=== PATIENT | female | born 1930 | race Caucasian/White ===

== ENCOUNTER 2018-07-03 13:36 | Inpatient (IN) | payer OTHER, BC ==
[2018-07-03] MEDS ORDERED: SODIUM CHLORIDE 1,000 ML IV STA ×3 (13:47→20:44)
[2018-07-03] MEDS ORDERED: VANCOMYCIN 1 GM in D5W (PRE-DOCKED) 1,000 MG/250 ML IVPB ONE (13:53)
[2018-07-03] MEDS ORDERED: PIPERACILLIN/TAZOB 3.375 GM 3.375 GM in DEXTROSE 5%-WATER - 50 ML IVPB ONE (13:53)
[2018-07-03] MEDS ORDERED: ACETAMINOPHEN 1000 MG/100 ML VIAL (NON FORMULARY) IVPB ONE (13:59)
--- NOTE | 2018-07-03 14:06 | PDOC ---
History of Present Illness - General Stated Complaint: SEPSIS Time Seen by Provider: 07/03/18 13:47 History Source: EMS, Detention Records Exam Limitations: Clinical Condition - History of Present Illness Initial Comments: 07/03/18 14:06 Patient is 88F from [facility] with history of alzheimer's, anxiety/depression, falls, CAD, DNR here today with altered mental status. Patient was sent in by her correction to "r/o sepsis". Temp was 97.6. Baseline patient is alert and oriented x2. At this time, patient is awake but non-responsive and unable to contribute to history. EMS reports normal fingerstick and vitals stable in the field. 07/03/18 14:36 D/W Zeynep Holland, patient's daughter, at [phone]. Confirms DNR/DNI. Past History - Past Medical History Allergies/Adverse Reactions: Allergies Allergy/AdvReac Type Severity Reaction Status Date / Time No Known Allergies Allergy Verified 07/05/15 14:29 Home Medications: Ambulatory Orders Acetaminophen [Tylenol] 650 mg PO TID 07/05/15 Ascorbic Acid [Vitamin C] 500 mg PO DAILY 07/05/15 Aspirin [ASA -] 81 mg PO DAILY 07/05/15 Divalproex [Depakote -] 125 mg PO BID 07/05/15 Docusate Sodium 100 mg PO DAILY 07/05/15 Donepezil HCl [Aricept -] 10 mg PO DAILY 07/05/15 Memantine HCl [Namenda -] 10 mg PO BID 07/05/15 Mirtazapine [Remeron Soltab -] 15 mg PO DAILY 07/05/15 Multivitamin [Poly-Vitamin] 1 each PO DAILY 07/05/15 Quetiapine Fumarate [Seroquel -] 50 mg PO DAILY 07/05/15 Acetaminophen [Tylenol .Regular Strength -] 650 mg PO TID tablet 07/06/15 Ascorbic Acid [Vitamin C -] 500 mg PO DAILY tablet 07/06/15 Aspirin [ASA -] 81 mg PO DAILY tab.chew 07/06/15 Docusate Sodium [Colace -] 100 mg PO DAILY capsule 07/06/15 Memantine HCl [Namenda -] 10 mg PO BID tablet 07/06/15 Multivitamins [Multivit ([facility] Formulary)] 1 tab PO DAILY tab 07/06/15 Anemia: No Asthma: No Dementia: Yes (alzheimers, dementia without behavioral disturbances) Psychiatric Problems: Yes (depressive behavior.) - Immunization History Immunization Up to Date: Yes - Suicide/Smoking/Psychosocial Hx Smoking History: Never smoked Have you smoked in the past 12 months: No Hx Alcohol Use: No Drug/Substance Use Hx: No Substance Use Type: None Hx Substance Use Treatment: No Review of Systems - Review of Systems Able to Perform ROS?: No (2/2 clinical condition) *Physical Exam - Physical Exam Comments: 07/03/18 14:12 GENERAL: Awake, ill-appearing, warm to touch HEAD: No signs of trauma, normocephalic, atraumatic EYES: PERRLA, EOMI, sclera anicteric, conjunctiva clear ENT: Auricles normal inspection, hearing grossly normal, nares patent, oropharynx clear without exudates. Moist mucosa NECK: Normal ROM, supple, no lymphadenopathy, JVD, or masses LUNGS: Tachypneic, coarse breath sounds bilaterally HEART: Tachycardic, normal S1 and S2, no murmurs, rubs or gallops, peripheral pulses normal and equal bilaterally. ABDOMEN: Soft, nontender, normoactive bowel sounds. No guarding, no rebound. No masses EXTREMITIES: Posterior distal legs wrapped. NEUROLOGICAL: Cranial nerves II through XII grossly intact. Moving all extremities SKIN: Warm, Dry, normal turgor, no rashes or lesions noted. ED Treatment Course - LABORATORY CBC & Chemistry Diagram: 07/03/18 14:12 07/03/18 14:12 - RADIOLOGY Radiology Studies Ordered: Category Date Time Status CHEST X-RAY PORTABLE* [RAD] Stat Radiology 07/03/18 13:47 Ordered Medical Decision Making - Medical Decision Making 07/03/18 14:13 Patient is 88F with history of alzheimer's, anxiety, depression, CAD, DNR here today with sepsis. Vitals notable for fever, tachycardia. DDx for infectious source and includes, but is not limited to: UTI, pneumonia. Septic order set initiated. Will treat with 1L NS, vanc, zosygn, iv tylenol EKG shows sinus tachycardia with rate of 127. No st elevations. Diffuse ST depressions in in I, II, aVF, V2-V6. Normal intervals. Likely 2/2 demand ischemia. 07/03/18 15:17 Laboratory Tests 07/03/18 07/03/18 07/03/18 14:12 14:12 14:12 WBC 16.2 H Hgb 8.1 L Plt Count 411 D VBG pH 7.37 POC VBG pCO2 32.6 L Sodium 152 H BUN 76 H Creatinine 2.1 H Lactic Acid Total Bilirubin 0.4 AST 95 H ALT 83 H Troponin I 0.20 H 07/03/18 14:12 WBC Hgb Plt Count VBG pH POC VBG pCO2 Sodium BUN Creatinine Lactic Acid 6.6 H* Total Bilirubin AST ALT Troponin I CBC shows leukocytosis. VBG shows normal pH. CMP shows evidence of dehydration. Trop 0.20, consistent with demand ischemia. Lactic acid 6.6. Second liter ordered. Patient has severe sepsis. CXR clear, but given initial coarse breath sounds suspect hydration will show pneumonia. Case d/w Dr Webb. Given coarse lung sounds suspect respiratory source, CXR clear due to dehydration. Dr Felipa Hernández paged. 07/03/18 15:39 Dr Felipa Hernández requests hospitalist, last HR 106, BP 159/82. Case discussed with NATALIA Liu *DC/Admit/Observation/Transfer Diagnosis at time of Disposition: Severe sepsis, Altered mental status - Discharge Dispostion Condition at time of disposition: Stable Decision to Admit order: Yes - Referrals - Patient Instructions - Post Discharge Activity
[2018-07-03] MEDS ORDERED: ACETAMINOPHEN INJECTION 100 ML IVPB ONE (14:08)
[2018-07-03] MEDS ORDERED: VANCOMYCIN 1 GRAM (PRE-DOCKED) 1,000 MG/250 ML BAG IVPB ONE (14:09)
[2018-07-03] MEDS ORDERED: PIPERACILLIN/TAZOB 3.375 GM 3.375 GM/50 ML BAG IVPB ONE (14:09)
[2018-07-03 14:22] LABS: VENOUS PC02 32.6 mmHg (41-51); VENOUS PH 7.37 (7.31-7.41); VENOUS PO2 63.4 mmHg (30-40)
[2018-07-03 14:24] LABS: BASO % 0.4 % (0-2.0); HEMATOCRIT 24.1 % (32.4-45.2); HEMOGLOBIN 8.1 GM/dL (10.7-15.3); LYMPH % 7.4 % (8-40); MCH 33.4 pg (25.7-33.7); MCHC 33.4 g/dl (32.0-36.0); MEAN CELL VOLUME 100.2 fl (80-96); MEAN PLT VOLUME 8.8 fl (7.5-11.1); MONO % 6.2 % (3.8-10.2); PLATELET COUNT 411 K/MM3 (134-434); RBC 2.41 M/mm3 (3.60-5.2); RDW 13.4 % (11.6-15.6); WHITE BLOOD COUNT 16.2 K/mm3 (4.0-10.0)
--- NOTE | 2018-07-03 14:30 | PDOC ---
Attending Attestation - HPI HPI: 07/03/18 14:36 The patient is an 88 YOF with a PMH of dementia and depression sent from [facility] for evaluation of lethargy. Patient is unable to provide further history 2/2 clinical condition. She is febrile to 102 here in the ER. She is DNR /DNI. Allergies: NKDA Surgeries: None Social: No toxic habits. - Physicial Exam PE: 07/03/18 14:35 ADULT EXAM GENERAL: (+) A&O x0. (+) Warm to touch. (+) Lethargic but responds to painful stimuli. HEAD: No signs of trauma EYES: PERRLA, EOMI, sclera anicteric, conjunctiva clear ENT: Auricles normal inspection, nares patent, (+) dry mucous membranes . NECK: Normal ROM, supple, JVD, or masses LUNGS: Breath sounds equal, clear to auscultation bilaterally. No wheezes, and no crackles HEART: Regular rate and rhythm, normal S1 and S2, no murmurs, rubs or gallops ABDOMEN: Soft, nontender. No guarding, no rebound. No masses EXTREMITIES: (+) Chronic bilateral feet wounds that are healing. NEUROLOGICAL: (+) A&O x0. SKIN: Dry, normal turgor, no rashes or lesions noted. (+) Warm to touch. <Nelia Burgess - Last Filed: 07/03/18 14:35> - Resident Resident Name: Rodrigue Bello - ED Attending Attestation I have performed the following: I have examined & evaluated the patient, The case was reviewed & discussed with the resident, I agree w/resident's findings & plan, Exceptions are as noted - Medical Decision Making 07/03/18 14:28 A portion of this note was documented by scribe services under my direction. I have reviewed the details of the note, within reason, and agree with the documentation with the following case summary and management plan written by me. Patient treated in the ED. Nursing notes are reviewed and incorporated into the medical decision-making. Vital signs reviewed. Peripheral IV access obtained by the nurse, laboratory studies are drawn and sent, reviewed and interpreted by myself. Vital Signs Temp Pulse Resp BP Pulse Ox 102.3 F H 127 H 26 H 122/69 97 07/03/18 13:40 07/03/18 13:40 07/03/18 13:40 07/03/18 13:40 07/03/18 13:40 88-year-old female with past medical history of dementia, depression sent from [facility] sent in for lethargy. The patient is unable to provide a history secondary to her illness and dementia. Patient has a temperature of 102 here. We'll need to initiate sepsis protocol. Dr. Bello had contacted pt's family and they will come to hospital. Start empiric antibiotics and admit. 07/03/18 15:51 CBC, BMP 07/03/18 14:12 07/03/18 14:12 CMP Sodium 152 mmol/L (136-145) H 07/03/18 14:12 Potassium 4.5 mmol/L (3.5-5.1) 07/03/18 14:12 Chloride 119 mmol/L (98-107) H 07/03/18 14:12 Carbon Dioxide 18 mmol/L (21-32) L 07/03/18 14:12 Anion Gap 14 MMOL/L (8-16) 07/03/18 14:12 BUN 76 mg/dL (7-18) H 07/03/18 14:12 Creatinine 2.1 mg/dL (0.55-1.3) H 07/03/18 14:12 Creat Clearance w eGFR 22.33 (>60) 07/03/18 14:12 Random Glucose 191 mg/dL (74-106) H 07/03/18 14:12 Lactic Acid 6.6 mmol/L (0.4-2.0) H* 07/03/18 14:12 Calcium 8.3 mg/dL (8.5-10.1) L 07/03/18 14:12 Total Bilirubin 0.4 mg/dL (0.2-1) 07/03/18 14:12 AST 95 U/L (15-37) H 07/03/18 14:12 ALT 83 U/L (13-61) H 07/03/18 14:12 Alkaline Phosphatase 86 U/L (45-117) 07/03/18 14:12 Troponin I 0.20 ng/ml (0.00-0.05) H 07/03/18 14:12 Total Protein 6.5 g/dl (6.4-8.2) 07/03/18 14:12 Albumin 3.2 g/dl (3.4-5.0) L 07/03/18 14:12 Urine Test Results Urine Color Yellow 07/03/18 14:00 Urine Appearance Clear 07/03/18 14:00 Urine pH 5.0 (5.0-8.0) 07/03/18 14:00 Ur Specific [place] 1.026 (1.010-1.035) 07/03/18 14:00 Urine Protein Negative (NEGATIVE) 07/03/18 14:00 Urine Glucose (UA) Negative (NEGATIVE) 07/03/18 14:00 Urine Ketones Trace (NEGATIVE) H 07/03/18 14:00 Urine Blood Negative (NEGATIVE) 07/03/18 14:00 Urine Nitrite Negative (NEGATIVE) 07/03/18 14:00 Urine Bilirubin Negative (<2.0 mg/dL) 07/03/18 14:00 Ur Leukocyte Esterase Trace (NEGATIVE) 07/03/18 14:00 Chest xray reviewed. Findings demonstrate likely severe sepsis. Pt mental status improving with IVF and antibiotics. Dr. Webb consulted and he had seen patient. Will admit patient to hospital. <Danny Reynolds - Last Filed: 07/03/18 15:53> Heart Score/ECG Review #1 ECG reviewed & interpreted by me at: 13:50 07/03/18 14:46 NSR 127 with PACs, marked ST abnormality, STD I, II, V3-V6, no SAMSON, QTC 430 msec <Danny Reynolds - Last Filed: 07/03/18 15:53>
[2018-07-03 14:34] LABS: EPI CELLS 3.3 /HPF (0-5); URINE APPEARANCE CLEAR; URINE BACTERIA 6.084 /hpf (NEGATIVE); URINE BILIRUBIN NEGATIVE (<2.0 mg/dL); URINE COLOR YELLOW; URINE GLUCOSE (UA) NEGATIVE (NEGATIVE); URINE KETONE TRACE (NEGATIVE); URINE LEUK ESTERASE TRACE (NEGATIVE); URINE NITRITE NEGATIVE (NEGATIVE); URINE PROTEIN NEGATIVE (NEGATIVE); URINE RBC 0 /hpf (0-4); URINE UROBILINOGEN 0.2 mg/dL (0.2-1.0); URINE WBC 2 /hpf (0-5)
[2018-07-03 15:05] LABS: ALBUMIN 3.2 g/dl (3.4-5.0); ALK PHOS 86 U/L (45-117); ANION GAP 14 MMOL/L (8-16); BILIRUBIN,TOTAL 0.4 mg/dL (0.2-1); BLOOD UREA NITROGEN 76 mg/dL (7-18); CALCIUM 8.3 mg/dL (8.5-10.1); CHLORIDE 119 mmol/L (98-107); CO2 18 mmol/L (21-32); CREATININE 2.1 mg/dL (0.55-1.3); GLUCOSE,RANDOM 191 mg/dL (74-106); POTASSIUM 4.5 mmol/L (3.5-5.1); SGOT/AST 95 U/L (15-37); SGPT/ALT 83 U/L (13-61); SODIUM 152 mmol/L (136-145); TOT PROT 6.5 g/dl (6.4-8.2)
--- NOTE | 2018-07-03 15:25 | CON.ID ---
Consult - Past Medical History [employer]: Yes: Alzheimer's Cardio/Vascular: Yes: CAD Psych: Yes: Anxiety, Depression - Alcohol/Substance Use Hx Alcohol Use: No - Smoking History Smoking history: Never smoked Have you smoked in the past 12 months: No Home Medications - Allergies Allergies/Adverse Reactions: Allergies Allergy/AdvReac Type Severity Reaction Status Date / Time No Known Allergies Allergy Verified 07/05/15 14:29 - Home Medications Home Medications: Ambulatory Orders Acetaminophen [Tylenol] 650 mg PO TID 07/05/15 Ascorbic Acid [Vitamin C] 500 mg PO DAILY 07/05/15 Aspirin [ASA -] 81 mg PO DAILY 07/05/15 Divalproex [Depakote -] 125 mg PO BID 07/05/15 Docusate Sodium 100 mg PO DAILY 07/05/15 Donepezil HCl [Aricept -] 10 mg PO DAILY 07/05/15 Memantine HCl [Namenda -] 10 mg PO BID 07/05/15 Mirtazapine [Remeron Soltab -] 15 mg PO DAILY 07/05/15 Multivitamin [Poly-Vitamin] 1 each PO DAILY 07/05/15 Quetiapine Fumarate [Seroquel -] 50 mg PO DAILY 07/05/15 Acetaminophen [Tylenol .Regular Strength -] 650 mg PO TID tablet 07/06/15 Ascorbic Acid [Vitamin C -] 500 mg PO DAILY tablet 07/06/15 Aspirin [ASA -] 81 mg PO DAILY tab.chew 07/06/15 Docusate Sodium [Colace -] 100 mg PO DAILY capsule 07/06/15 Memantine HCl [Namenda -] 10 mg PO BID tablet 07/06/15 Multivitamins [Multivit ([facility] Formulary)] 1 tab PO DAILY tab 07/06/15 Physical Exam Vital Signs: Vital Signs Temperature 102.3 F H 07/03/18 13:40 Pulse Rate 127 H 07/03/18 13:40 Respiratory Rate 26 H 07/03/18 13:40 Blood Pressure 122/69 07/03/18 13:40 O2 Sat by Pulse Oximetry (%) 97 07/03/18 13:40 Labs: CBC, BMP 07/03/18 14:12 07/03/18 14:12
[2018-07-03 15:39] LABS: URINE CASTS NONE SEEN /hpf (0-8)
[2018-07-03] MEDS: PIPERACILLIN/TAZOB 2.25 GM 2.25 GM in DEXTROSE 5%-WATER - 50 ML IVPB SCH (18:05)
--- NOTE | 2018-07-03 18:12 | HP ---
CHIEF COMPLAINT: increased lethargy at [place] PCP: Dr. Shannan Hernández HISTORY OF PRESENT ILLNESS: Patient is a 88 year old female with a significant past medical history of alzheimers dementia, anxiety and depression and frequent falls. Patient is a resident of [facility] and was sent in for increased lethargy and fevers. Patient is unable to provide any history and appears anxious on exam. In the ED she was noted to be febrile at 102, lactic acid 6.6, leukocytosis @ 16.2 with tachycardia. She is being admitted for severe sepsis. Patient is a DNR/DNI per ED physician after conversing and confirming with family. ER course was notable for: (1) severe sepsis (2) anemia (3) elevated trop (5) severo (6) lactic acidosis 6.6 PAST MEDICAL HISTORY: alzheimers dementia, anxiety and depression and frequent falls. Family History: Allergies No Known Allergies Allergy (Verified 07/05/15 14:29) HOME MEDICATIONS: Home Medications Medication Instructions Recorded Acetaminophen [Tylenol] 650 mg PO TID 07/05/15 Ascorbic Acid [Vitamin C] 500 mg PO DAILY 07/05/15 Aspirin [ASA -] 81 mg PO DAILY 07/05/15 Divalproex [Depakote -] 125 mg PO BID 07/05/15 Docusate Sodium 100 mg PO DAILY 07/05/15 Donepezil HCl [Aricept -] 10 mg PO DAILY 07/05/15 Memantine HCl [Namenda -] 10 mg PO BID 07/05/15 Mirtazapine [Remeron Soltab -] 15 mg PO DAILY 07/05/15 Multivitamin [Poly-Vitamin] 1 each PO DAILY 07/05/15 Quetiapine Fumarate [Seroquel -] 50 mg PO DAILY 07/05/15 Acetaminophen [Tylenol .Regular 650 mg PO TID tablet 07/06/15 Strength -] Ascorbic Acid [Vitamin C -] 500 mg PO DAILY tablet 07/06/15 Aspirin [ASA -] 81 mg PO DAILY tab.chew 07/06/15 Docusate Sodium [Colace -] 100 mg PO DAILY capsule 07/06/15 Memantine HCl [Namenda -] 10 mg PO BID tablet 07/06/15 Multivitamins [Multivit ([facility] 1 tab PO DAILY tab 07/06/15 Formulary)] PHYSICAL EXAMINATION Vital Signs - 24 hr 07/03/18 07/03/18 07/03/18 13:40 14:00 16:30 Temperature 102.3 F H Pulse Rate 127 H Pulse Rate [ 87 Apical] Respiratory 26 H 18 Rate Blood Pressure 122/69 Blood Pressure 109/73 [Right Arm] O2 Sat by Pulse 97 99 98 Oximetry (%) GENERAL: lethargic. pallorous HEAD: Normal with no signs of trauma. EYES: Pupils equal, round and reactive to light EARS, NOSE, THROAT: Ears normal, nares patent, oropharynx clear without exudates. Moist mucous membranes. NECK: Normal range of motion, supple without lymphadenopathy, JVD, or masses. LUNGS: Breath sounds equal, but diminished bilaterally HEART: sinus tachycardia 112s ABDOMEN: Soft, nontender, not distended, normoactive bowel sounds MUSCULOSKELETAL: Normal range of motion at all joints. No bony deformities or tenderness. No CVA tenderness. LOWER EXTREMITIES: trace peripheral edema NEUROLOGICAL: lethargic SKIN: pressure ulcer of bilateral feet Laboratory Results - last 24 hr 07/03/18 07/03/18 07/03/18 14:00 14:12 14:12 WBC 16.2 H RBC 2.41 L Hgb 8.1 L Hct 24.1 L D MCV 100.2 H MCH 33.4 MCHC 33.4 RDW 13.4 Plt Count 411 D MPV 8.8 D Absolute Neuts (auto) 13.9 H Neutrophils % 86.0 H D Lymphocytes % 7.4 L D Monocytes % 6.2 Eosinophils % 0.0 D Basophils % 0.4 Nucleated RBC % 0 PT with INR Cancelled INR Cancelled PTT (Actin FS) Cancelled VBG pH POC VBG pCO2 POC VBG pO2 VBG HCO3 VBG O2 Sat (Shelbi) VBG Base Excess Sodium Potassium Chloride Carbon Dioxide Anion Gap BUN Creatinine Creat Clearance w eGFR Random Glucose Lactic Acid Calcium Total Bilirubin AST ALT Alkaline Phosphatase Troponin I Total Protein Albumin Urine Color Yellow Urine Appearance Clear Urine pH 5.0 Ur Specific [place] 1.026 Urine Protein Negative Urine Glucose (UA) Negative Urine Ketones Trace H Urine Blood Negative Urine Nitrite Negative Urine Bilirubin Negative Urine Urobilinogen 0.2 Ur Leukocyte Esterase Trace Urine WBC (Auto) 2 Urine RBC (Auto) 0 Urine Casts (Auto) None seen U Pathogenic Cast Auto None seen U Epithel Cells (Auto) 3.3 Urine Bacteria (Auto) 6.084 Influenza A (Rapid) Influenza B (Rapid) 07/03/18 07/03/18 07/03/18 14:12 14:12 14:12 WBC RBC Hgb Hct MCV MCH MCHC RDW Plt Count MPV Absolute Neuts (auto) Neutrophils % Lymphocytes % Monocytes % Eosinophils % Basophils % Nucleated RBC % PT with INR INR PTT (Actin FS) VBG pH 7.37 POC VBG pCO2 32.6 L POC VBG pO2 63.4 H VBG HCO3 18.2 L VBG O2 Sat (Shelbi) 89.5 H VBG Base Excess -6.0 L Sodium 152 H Potassium 4.5 Chloride 119 H Carbon Dioxide 18 L Anion Gap 14 BUN 76 H Creatinine 2.1 H Creat Clearance w eGFR 22.33 Random Glucose 191 H Lactic Acid 6.6 H* Calcium 8.3 L Total Bilirubin 0.4 AST 95 H ALT 83 H Alkaline Phosphatase 86 Troponin I 0.20 H Total Protein 6.5 Albumin 3.2 L Urine Color Urine Appearance Urine pH Ur Specific [place] Urine Protein Urine Glucose (UA) Urine Ketones Urine Blood Urine Nitrite Urine Bilirubin Urine Urobilinogen Ur Leukocyte Esterase Urine WBC (Auto) Urine RBC (Auto) Urine Casts (Auto) U Pathogenic Cast Auto U Epithel Cells (Auto) Urine Bacteria (Auto) Influenza A (Rapid) Influenza B (Rapid) 07/03/18 07/03/18 14:12 14:27 WBC RBC Hgb Hct MCV MCH MCHC RDW Plt Count MPV Absolute Neuts (auto) Neutrophils % Lymphocytes % Monocytes % Eosinophils % Basophils % Nucleated RBC % PT with INR INR PTT (Actin FS) VBG pH POC VBG pCO2 POC VBG pO2 VBG HCO3 VBG O2 Sat (Shelbi) VBG Base Excess Sodium Potassium Chloride Carbon Dioxide Anion Gap BUN Creatinine Creat Clearance w eGFR Random Glucose Lactic Acid Calcium Total Bilirubin AST ALT Alkaline Phosphatase Troponin I Cancelled Total Protein Albumin Urine Color Urine Appearance Urine pH Ur Specific [place] Urine Protein Urine Glucose (UA) Urine Ketones Urine Blood Urine Nitrite Urine Bilirubin Urine Urobilinogen Ur Leukocyte Esterase Urine WBC (Auto) Urine RBC (Auto) Urine Casts (Auto) U Pathogenic Cast Auto U Epithel Cells (Auto) Urine Bacteria (Auto) Influenza A (Rapid) Negative Influenza B (Rapid) Negative ASSESSMENT/PLAN: Patient is a 88 year old female with a significant past medical history of alzheimers dementia, anxiety and depression and frequent falls. Patient is a resident of [facility] and was sent in for increased lethargy and fevers. Patient is unable to provide any history and appears anxious on exam. In the ED she was noted to be febrile at 102, lactic acid 6.6, leukocytosis @ 16.2 with tachycardia. She is being admitted for severe sepsis. ID: Severe sepsis. presents to the Ed was noted to be febrile at 102, with a lactic acid of 6.6, leukocytosis @ 16.2 with tachycardia. She was seen and evaluated by ID and Faustina traylor. blood and urine cultures pending. chest xray with no acute pathology. She has been given 2 liter bolus in the ED for lactic acidosis 6.6, after bolus , lactic acid now 5.1. continue to hydrate and repeat lactic acid until normalizes. ID following Heme: Anemia 8.1/24.1 on presentation will order iron studies Card: elevated trop. likely secondary to demand ischemia. continue to trend Renal SEVERO @ 2.1 creat. with a baseline of 1.1 hydrate with ns @ 100cc/hr fen ns @ 100 monitor electrolytes pureed diet DNR/DNI. Visit type - Emergency Visit Emergency Visit: Yes ED Registration Date: 07/03/18 Care time: The patient presented to the Emergency Department on the above date and was hospitalized for further evaluation of their emergent condition. - New Patient This patient is new to me today: Yes Date on this admission: 07/03/18 - Critical Care Critical Care patient: No
[2018-07-03] MEDS ORDERED: ACETAMINOPHEN 1000 MG/100 ML VIAL (NON FORMULARY) IVPB PRN (20:45)
[2018-07-03] MEDS: DIVALPROEX SODIUM 125 MG TABLET E.C. PO SCH (22:25)
[2018-07-03] MEDS: MEMANTINE HCL 10 MG TABLET (FP) PO SCH (22:25)
--- NOTE | 2018-07-03 23:45 | EKG ---
Test Reason : Blood Pressure : / mmHG Vent. Rate : 127 BPM Atrial Rate : 127 BPM P-R Int : 120 ms QRS Dur : 076 ms QT Int : 296 ms P-R-T Axes : 071 025 229 degrees QTc Int : 430 ms SINUS TACHYCARDIA WITH PREMATURE ATRIAL COMPLEXES MARKED ST ABNORMALITY, POSSIBLE INFERIOR SUBENDOCARDIAL INJURY ABNORMAL ECG WHEN COMPARED WITH ECG OF 05-JUL-2015 14:47, VENT. RATE HAS INCREASED BY [address] NOW DEPRESSED IN INFERIOR LEADS ST NOW DEPRESSED IN LATERAL LEADS T WAVE INVERSION NOW EVIDENT IN INFERIOR LEADS T WAVE INVERSION NOW EVIDENT IN LATERAL LEADS Confirmed by EMELYN KAUFFMAN MD ([id number]) on 07/03/2018 11:44:45 PM Referred By: Confirmed By:EMELYN KAUFFMAN MD
[2018-07-04] MEDS: SODIUM CHLORIDE 1,000 ML IV SCH (00:05)
[2018-07-04] MEDS ORDERED: PIPERACILLIN/TAZOB 2.25 GM 2.25 GM/50 ML BAG IVPB ONE ×3 (02:01→18:47)
[2018-07-04] MEDS: PIPERACILLIN/TAZOB 2.25 GM 2.25 GM in DEXTROSE 5%-WATER - 50 ML IVPB SCH ×3 (02:06→18:48)
[2018-07-04 07:34] LABS: HEMATOCRIT 18.3 % (32.4-45.2); MCH 33.8 pg (25.7-33.7); MEAN CELL VOLUME 102.3 fl (80-96); MEAN PLT VOLUME 8.3 fl (7.5-11.1); PLATELET COUNT 256 K/MM3 (134-434); RBC 1.79 M/mm3 (3.60-5.2); RDW 14.3 % (11.6-15.6)
[2018-07-04 08:04] LABS: ANION GAP 9 MMOL/L (8-16); BLOOD UREA NITROGEN 51 mg/dL (7-18); CALCIUM 7.1 mg/dL (8.5-10.1); CHLORIDE 125 mmol/L (98-107); CO2 20 mmol/L (21-32); CREATININE 1.4 mg/dL (0.55-1.3); GLUCOSE,RANDOM 121 mg/dL (74-106); PHOSPHOROUS 3.5 mg/dL (2.5-4.9); POTASSIUM 3.6 mmol/L (3.5-5.1); SODIUM 154 mmol/L (136-145)
[2018-07-04 08:50] LABS: INR 1.04 (0.83-1.09); PROTHROMBIN TIME (PATIENT) 12.3 SEC (9.7-13.0)
[2018-07-04] MEDS: MEMANTINE HCL 10 MG TABLET (FP) PO SCH ×2 (10:17→22:19)
[2018-07-04] MEDS: DIVALPROEX SODIUM 125 MG TABLET E.C. PO SCH ×2 (10:17→22:19)
[2018-07-04] MEDS: QUEtiapine FUMARATE 50 MG TABLET PO SCH (10:19)
[2018-07-04] MEDS ORDERED: QUEtiapine FUMARATE 25 MG TABLET (FP) ONE (10:19)
[2018-07-04 10:52] LABS: BASO % 0.2 % (0-2.0); EOS % 0.1 % (0-4.5); LYMPH % 9.4 % (8-40); MCH 33.7 pg (25.7-33.7); MCHC 33.2 g/dl (32.0-36.0); MEAN CELL VOLUME 101.6 fl (80-96); MEAN PLT VOLUME 8.4 fl (7.5-11.1); MONO % 5.3 % (3.8-10.2); PLATELET COUNT 274 K/MM3 (134-434); RBC 1.78 M/mm3 (3.60-5.2); RDW 13.8 % (11.6-15.6); WHITE BLOOD COUNT 15.1 K/mm3 (4.0-10.0)
[2018-07-04] MEDS ORDERED: FUROSEMIDE 40 MG/4 ML INJECTABLE VIAL IVPUSH ONE (11:20)
[2018-07-04] MEDS ORDERED: FUROSEMIDE 40 MG/4 ML INJECTABLE VIAL ONE (11:32)
--- NOTE | 2018-07-04 14:36 | PN ---
Progress Note, Physician - Current Medication List Current Medications: Active Medications Acetaminophen (Ofirmev Injection -) 1,000 mg IVPB Q6H PRN PRN Reason: FEVER Divalproex Sodium (Depakote -) 125 mg PO BID [facility] Last Admin: 07/04/18 10:17 Dose: 125 mg Piperacillin Sod/Tazobactam (Sod 2.25 gm/ Dextrose) 50 mls @ 100 mls/hr IVPB Q8H-IV [facility]; Protocol Last Admin: 07/04/18 10:19 Dose: 100 mls/hr Sodium Chloride (Normal Saline -) 1,000 mls @ 100 mls/hr IV [facility] Last Admin: 07/04/18 00:05 Dose: 100 mls/hr Memantine (Namenda -) 10 mg PO BID [facility] Last Admin: 07/04/18 10:17 Dose: 10 mg Quetiapine Fumarate (Seroquel -) 50 mg PO DAILY [facility] Last Admin: 07/04/18 10:19 Dose: 50 mg - Objective Vital Signs: Vital Signs Temperature 99.1 F 07/04/18 01:03 Pulse Rate 83 07/04/18 11:35 Respiratory Rate 17 07/04/18 11:35 Blood Pressure 107/89 07/04/18 11:35 O2 Sat by Pulse Oximetry (%) 100 07/04/18 11:35 Labs: CBC, BMP 07/04/18 10:20 07/04/18 06:58 INR, PTT INR 1.04 (0.83-1.09) 07/04/18 06:58
--- NOTE | 2018-07-04 16:26 | PN ---
Progress Note (short form) - Note Progress Note: pt seen/ examined in er chart reviewed discussed with daughter who is at bedside Vital Signs Temp 99.1 F 07/04/18 01:03 Pulse 83 07/04/18 11:35 Resp 17 07/04/18 11:35 BP 107/89 07/04/18 11:35 Pulse Ox 100 07/04/18 11:35 Intake & Output 07/03/18 07/04/18 07/04/18 23:59 11:59 23:59 Weight 140 lb Other: Voiding Method Diaper Height 5 ft 7 in Body Mass Index (BMI) 21.9 Active Medications Acetaminophen (Ofirmev Injection -) 1,000 mg IVPB Q6H PRN PRN Reason: FEVER Divalproex Sodium (Depakote -) 125 mg PO BID [facility] Last Admin: 07/04/18 10:17 Dose: 125 mg Piperacillin Sod/Tazobactam (Sod 2.25 gm/ Dextrose) 50 mls @ 100 mls/hr IVPB Q8H-IV [facility]; Protocol Last Admin: 07/04/18 10:19 Dose: 100 mls/hr Sodium Chloride (Normal Saline -) 1,000 mls @ 100 mls/hr IV [facility] Last Admin: 07/04/18 00:05 Dose: 100 mls/hr Memantine (Namenda -) 10 mg PO BID [facility] Last Admin: 07/04/18 10:17 Dose: 10 mg Quetiapine Fumarate (Seroquel -) 50 mg PO DAILY [facility] Last Admin: 07/04/18 10:19 Dose: 50 mg CBC, BMP 07/04/18 10:20 07/04/18 06:58 physical exam drowsy but arousable Poor historian No distress S1 S2 RRR pallor Lungs clear Abd- soft, NT no edema a/p transfuse abx follow-up cultures GI consult requested--- but no aggressive treatment per family positive troponins/and abnormal EKG--- likely acute coronary syndrome no aggressive treatment as per family--- discussed in detail Willing for transfusion and antibiotics Follow-up labs Will follow pt is dnr/di discussed with nursing staff also
--- NOTE | 2018-07-04 21:39 | CON.GI ---
Consult Consult Specialty:: Gastroenterology Referred by:: Dr. Shannan Hernández Reason for Consultation:: Anemia - History of Present Illness Chief Complaint: altered mental status History of Present Illness: 88F is transferred from [facility] with an altered mental status. She is found to have a Hb of 6, lactic acidosis and elevated troponins with DT depressions on her EKG. She is unable to give history due to dementia. Her daughter,Zenyep denies any h/o GI bleeding. Her mother has never had an EGD or a colonoscopy even though her father and brother had colon. Edwige is on aspirin chronically for ? atrial fibrillation There is no obvious source of sepsis. 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 Place of : [facility] Home Medications - Allergies Allergies/Adverse Reactions: Allergies Allergy/AdvReac Type Severity Reaction Status Date / Time No Known Allergies Allergy Verified 07/05/15 14:29 - Home Medications Home Medications: Ambulatory Orders Acetaminophen 500 mg PO BID 07/03/18 Ascorbate Calcium [Vitamin C] 500 mg PO BID 07/03/18 Aspirin [Aspirin EC] 81 mg PO DAILY 07/03/18 Cadexomer Iodine [Iodosorb] 1 applic TP BID 07/03/18 Calcium 250Mg/Vit-D 125 Units [Oscal 250 mg+D -] 1 combo PO BID 07/03/18 Docusate Sodium 200 mg PO HS 07/03/18 Memantine HCl [Namenda -] 10 mg PO BID 07/03/18 Mirtazapine [Remeron -] 15 mg PO HS 07/03/18 Multivitamin,Ther and Minerals [Vitamin and Minerals] 1 each PO HS 07/03/18 Protein Hydrolysate,Milk [Liquid Protein Fortifier] 30 ml PO BID 07/03/18 levoFLOXacin 500 MG IVPB [Levaquin 500 mg/D5w] 500 mg IVPB BID 07/03/18 Family Disease History - Family Disease History Family Disease History: CA: Father (colon cancer), Sister (colon cancer) Physical Exam-GI Vital Signs: Vital Signs Temperature 99.1 F 07/04/18 19:58 Pulse Rate 80 07/04/18 19:58 Respiratory Rate 20 07/04/18 19:58 Blood Pressure 156/82 07/04/18 19:58 O2 Sat by Pulse Oximetry (%) 98 07/04/18 19:58 CBC,CMP WBC 15.1 K/mm3 (4.0-10.0) H 07/04/18 10:20 RBC 1.78 M/mm3 (3.60-5.2) L 07/04/18 10:20 Hgb 6.0 GM/dL (10.7-15.3) L* 07/04/18 10:20 Hct 18.0 % (32.4-45.2) L 07/04/18 10:20 MCV 101.6 fl (80-96) H 07/04/18 10:20 MCH 33.7 pg (25.7-33.7) 07/04/18 10:20 MCHC 33.2 g/dl (32.0-36.0) 07/04/18 10:20 RDW 13.8 % (11.6-15.6) 07/04/18 10:20 Plt Count 274 K/MM3 (134-434) 07/04/18 10:20 MPV 8.4 fl (7.5-11.1) 07/04/18 10:20 Absolute Neuts (auto) 12.8 K/mm3 (1.5-8.0) H 07/04/18 10:20 Neutrophils % 85.0 % (42.8-82.8) H 07/04/18 10:20 Lymphocytes % 9.4 % (8-40) D 07/04/18 10:20 Monocytes % 5.3 % (3.8-10.2) 07/04/18 10:20 Eosinophils % 0.1 % (0-4.5) D 07/04/18 10:20 Basophils % 0.2 % (0-2.0) 07/04/18 10:20 Nucleated RBC % 0 % (0-0) 07/04/18 10:20 Sodium 154 mmol/L (136-145) H 07/04/18 06:58 Potassium 3.6 mmol/L (3.5-5.1) 07/04/18 06:58 Chloride 125 mmol/L (98-107) H 07/04/18 06:58 Carbon Dioxide 20 mmol/L (21-32) L 07/04/18 06:58 Anion Gap 9 MMOL/L (8-16) 07/04/18 06:58 BUN 51 mg/dL (7-18) H 07/04/18 06:58 Creatinine 1.4 mg/dL (0.55-1.3) H 07/04/18 06:58 Creat Clearance w eGFR 35.65 (>60) 07/04/18 06:58 Random Glucose 121 mg/dL (74-106) H 07/04/18 06:58 Lactic Acid 4.4 mmol/L (0.4-2.0) H* 07/04/18 00:45 Calcium 7.1 mg/dL (8.5-10.1) L 07/04/18 06:58 Phosphorus 3.5 mg/dL (2.5-4.9) 07/04/18 06:58 Magnesium 2.0 mg/dL (1.8-2.4) 07/04/18 06:58 Total Bilirubin 0.4 mg/dL (0.2-1) 07/03/18 14:12 AST 95 U/L (15-37) H 07/03/18 14:12 ALT 83 U/L (13-61) H 07/03/18 14:12 Alkaline Phosphatase 86 U/L (45-117) 07/03/18 14:12 Troponin I 0.15 ng/ml (0.00-0.05) H 07/04/18 10:20 Total Protein 6.5 g/dl (6.4-8.2) 07/03/18 14:12 Albumin 3.2 g/dl (3.4-5.0) L 07/03/18 14:12 Current Medications Generic Name Dose Route Start Last Admin Trade Name Freq PRN Reason Stop Dose Admin Acetaminophen 1,000 mg 07/03/18 20:45 Ofirmev Injection - IVPB Q6H PRN FEVER Divalproex Sodium 125 mg 07/03/18 22:00 07/04/18 10:17 Depakote - PO 125 mg BID KAMI Administration Piperacillin Sod/Tazobactam 50 mls @ 100 mls/hr 07/03/18 18:00 07/04/18 18:48 Sod 2.25 gm/ Dextrose IVPB 100 mls/hr Q8H-IV KAMI Administration Protocol Sodium Chloride 1,000 mls @ 100 mls/hr 07/03/18 23:30 07/04/18 00:05 Normal Saline - IV 100 mls/hr ASDIR KAMI Administration Pantoprazole Sodium 80 mg/ 100 mls @ 10 mls/hr 07/04/18 21:45 Sodium Chloride IVPB Q10H KAMI 8 MG/HR Memantine 10 mg 07/03/18 22:00 07/04/18 10:17 Namenda - PO 10 mg BID KAMI Administration Quetiapine Fumarate 50 mg 07/04/18 10:00 07/04/18 10:19 Seroquel - PO 50 mg DAILY KAMI Administration Constitutional: Yes: Anxious Eyes: Yes: Conjunctiva Clear HENT: Yes: Atraumatic Neck: Yes: Supple Cardiovascular: Yes: Tachycardia Respiratory: Yes: CTA Bilaterally Gastrointestinal Inspection: Yes: WNL ...Auscultate: Yes: Hyperactive Bowel Sounds ...Palpate: Yes: Soft, Other (nontender) ...Rectal Exam: Yes: Guaiac Positive (black melena strongly guaiac positive) Edema: No Peripheral Pulses WNL: Yes Neurological: Yes: Lethargy Labs: CBC, BMP 07/04/18 10:20 07/04/18 06:58 INR, PTT INR 1.04 (0.83-1.09) 07/04/18 06:58 Laboratory Tests 10/04/13 07/05/15 07/03/18 06:00 14:50 14:12 Hgb 11.9 10.1 L D 8.1 L BUN Creatinine Lactic Acid Troponin I 07/03/18 07/03/18 07/03/18 14:12 14:12 17:53 Hgb BUN 76 H Creatinine 2.1 H Lactic Acid 6.6 H* 5.1 H* Troponin I 07/03/18 07/04/18 07/04/18 18:15 00:45 06:58 Hgb 6.0 L* BUN Creatinine Lactic Acid 4.4 H* Troponin I 0.19 H 07/04/18 07/04/18 06:58 10:20 Hgb 6.0 L* BUN 51 H Creatinine 1.4 H Lactic Acid Troponin I Problem List - Problems (1) GI hemorrhage Assessment/Plan: Melena with Hb 6 and hyperactive bowel sound indicates an active GI hemorrhage. I have informed the patient's daughter Zeynep of this and offered an EGD to determine the source of bleeding and to try to control it. I informed her of the risk of perforation and hemorrhage among others. I also informed her of the risk of cardiopulmonary arrest and the potential need then for resuscitative measures that may include intubation. I discussed that her DNR would need to be reversed at least for the purposes of the procedure to allow for such resuscitation. She could alternatively opt for the procedure with DNR left in effect. Zeynep is aware that Edwige has cardiac and renal compromise. She wants to discuss the situation with her other sister and will let me know. I explained that give aspirin usage that an ulcer or erosive gastritis/ duodenitis are the most likely cause of bleeding but she alternatively be bleeding from a Dieulafoy erosion, AVMs, GERD, a neoplasm. I explained that given her family history that a colon cancer my loom as contributing. Code(s): K92.2 - GASTROINTESTINAL HEMORRHAGE, UNSPECIFIED (2) Family history of colon cancer in father Code(s): Z80.0 - FAMILY HISTORY OF MALIGNANT NEOPLASM OF DIGESTIVE ORGANS (3) Family history of malignant neoplasm of colon in first degree relative diagnosed when younger than 60 years of age Code(s): Z80.0 - FAMILY HISTORY OF MALIGNANT NEOPLASM OF DIGESTIVE ORGANS (4) Tachycardia with heart rate 121-140 beats per minute Code(s): R00.0 - TACHYCARDIA, UNSPECIFIED (5) Altered mental status Code(s): R41.82 - ALTERED MENTAL STATUS, UNSPECIFIED (6) Dementia Code(s): F03.90 - UNSPECIFIED DEMENTIA WITHOUT BEHAVIORAL DISTURBANCE Assessment/Plan Impression: GI hemorrhage ? NSAID ulcer or erosions, Dieulafoy, GERD. vascular ectasias, diverticular disease, ischemic colitis and neoplasm among other neoplasms FH colon cancer Plan PPI drip Transfuse EGD if consent is granted Serial CBCs
[2018-07-04] MEDS: PANTOPRAZOLE SODIUM 80 MG in SODIUM CHLORIDE 100 ML IVPB SCH (23:09)
[2018-07-05] MEDS: SODIUM CHLORIDE 1,000 ML IV SCH (00:09)
[2018-07-05] MEDS ORDERED: PIPERACILLIN/TAZOB 2.25 GM 2.25 GM/50 ML BAG IVPB ONE (01:15)
[2018-07-05] MEDS: PIPERACILLIN/TAZOB 2.25 GM 2.25 GM in DEXTROSE 5%-WATER - 50 ML IVPB SCH ×3 (02:28→18:04)
[2018-07-05 04:12] LABS: SERUM IRON SATURATION 9 % (15-55); TOTAL IRON BINDING CAPACITY 247 ug/dL (250-450); UIBC 226 ug/dL (118-369)
[2018-07-05] MEDS: PANTOPRAZOLE SODIUM 80 MG in SODIUM CHLORIDE 100 ML IVPB SCH ×2 (08:42→18:30)
[2018-07-05 09:40] LABS: BASO % 0.1 % (0-2.0); EOS % 0.1 % (0-4.5); HEMATOCRIT 31.2 % (32.4-45.2); HEMOGLOBIN 10.8 GM/dL (10.7-15.3); LYMPH % 5.3 % (8-40); MCH 32.1 pg (25.7-33.7); MCHC 34.7 g/dl (32.0-36.0); MEAN CELL VOLUME 92.5 fl (80-96); MEAN PLT VOLUME 8.7 fl (7.5-11.1); MONO % 5.5 % (3.8-10.2); PLATELET COUNT 248 K/MM3 (134-434); RBC 3.37 M/mm3 (3.60-5.2); RDW 16.9 % (11.6-15.6)
--- NOTE | 2018-07-05 10:39 | PN ---
Progress Note (short form) - Note Progress Note: Aide at bedside Pt awakens when called drowsy no distress Vital Signs - 24 hr 07/04/18 07/04/18 07/04/18 11:35 19:58 21:00 Temperature 99.1 F Pulse Rate Pulse Rate [ 83 80 Apical] Respiratory 17 20 Rate Blood Pressure Blood Pressure 107/89 156/82 [Right Arm] O2 Sat by Pulse 100 98 99 Oximetry (%) 07/05/18 09:00 Temperature 98.5 F Pulse Rate 87 Pulse Rate [ Apical] Respiratory 20 Rate Blood Pressure 159/88 Blood Pressure [Right Arm] O2 Sat by Pulse 98 Oximetry (%) Current Medications Generic Name Dose Route Start Last Admin Trade Name Freq PRN Reason Stop Dose Admin Acetaminophen 1,000 mg 07/03/18 20:45 Ofirmev Injection - IVPB Q6H PRN FEVER Divalproex Sodium 125 mg 07/03/18 22:00 07/05/18 10:41 Depakote - PO Not Given BID KAMI Piperacillin Sod/Tazobactam 50 mls @ 100 mls/hr 07/03/18 18:00 07/05/18 02:28 Sod 2.25 gm/ Dextrose IVPB 100 mls/hr Q8H-IV KAMI Administration Protocol Pantoprazole Sodium 80 mg/ 100 mls @ 10 mls/hr 07/04/18 21:45 07/05/18 08:42 Sodium Chloride IVPB 10 mls/hr Q10H KAMI Administration 8 MG/HR Potassium Chloride/Dextrose/Sod Cl 20 meq in 1,000 mls @ 75 mls/hr 07/05/18 10 :45 D5-1/2ns+20 Meq Kcl - IV ASDIR KAMI Memantine 10 mg 07/03/18 22:00 07/05/18 10:42 Namenda - PO Not Given BID KAMI Quetiapine Fumarate 50 mg 07/04/18 10:00 07/05/18 10:42 Seroquel - PO Not Given DAILY KAMI Laboratory Results - last 24 hr 07/04/18 07/04/18 07/04/18 06:58 10:20 10:20 WBC 15.1 H RBC 1.78 L Hgb 6.0 L* Hct 18.0 L MCV 101.6 H MCH 33.7 MCHC 33.2 RDW 13.8 Plt Count 274 MPV 8.4 Absolute Neuts (auto) 12.8 H Neutrophils % 85.0 H Lymphocytes % 9.4 D Monocytes % 5.3 Eosinophils % 0.1 D Basophils % 0.2 Nucleated RBC % 0 Retic Count POC Glucometer Iron 21 L TIBC 247 L Iron Saturation 9 L Transferrin 202 Creatine Kinase Troponin I 0.15 H C-Reactive Protein Total Amylase Lipase Blood Type Antibody Screen Antibody Identification Antigen Identification Crossmatch 07/04/18 07/04/18 07/05/18 10:20 12:01 04:45 WBC RBC Hgb Hct MCV MCH MCHC RDW Plt Count MPV Absolute Neuts (auto) Neutrophils % Lymphocytes % Monocytes % Eosinophils % Basophils % Nucleated RBC % Retic Count POC Glucometer 94 Iron TIBC Iron Saturation Transferrin Creatine Kinase Troponin I C-Reactive Protein Total Amylase Lipase Blood Type A POSITIVE A POSITIVE Antibody Screen Positive Antibody Identification Inconclusive Antigen Identification No Result Required. Crossmatch See Detail 07/05/18 07/05/18 07/05/18 09:20 09:20 09:20 WBC RBC 3.37 L Hgb 10.8 Hct 31.2 L D MCV 92.5 D MCH 32.1 MCHC 34.7 RDW 16.9 H Plt Count MPV Absolute Neuts (auto) 15.2 H Neutrophils % 89.0 H Lymphocytes % 5.3 L D Monocytes % 5.5 Eosinophils % 0.1 Basophils % 0.1 Nucleated RBC % Retic Count 4.46 H POC Glucometer Iron TIBC Iron Saturation Transferrin Creatine Kinase 246 H Troponin I 0.61 H* C-Reactive Protein 0.5 H Total Amylase 146 H Lipase 293 Blood Type Antibody Screen Antibody Identification Antigen Identification Crossmatch S1 S2 RRR No pallor Lungs clear Oral dry Abd- soft, NT no edema dressings to feet B/L swollen left hand, ecchymosis PLAN s/p PRBC on Protonix IV swallow eval-- will start diet accordingly noted elevated troponins family does not want aggressive management-- EGD cancelled- spoke with GI ASA dc IV antibiotics -- cultures negative,cxr no infiltrate, negative Flu-- per ID pt is DNR/DNI Problem List - Problems (1) Altered mental status Code(s): R41.82 - ALTERED MENTAL STATUS, UNSPECIFIED (2) GI hemorrhage Code(s): K92.2 - GASTROINTESTINAL HEMORRHAGE, UNSPECIFIED (3) Severe sepsis Code(s): A41.9 - SEPSIS, UNSPECIFIED ORGANISM; R65.20 - SEVERE SEPSIS WITHOUT SEPTIC SHOCK (4) Dementia Code(s): F03.90 - UNSPECIFIED DEMENTIA WITHOUT BEHAVIORAL DISTURBANCE (5) Fever Code(s): R50.9 - FEVER, UNSPECIFIED Qualifiers: Fever type: unspecified Qualified Code(s): R50.9 - Fever, unspecified
[2018-07-05] MEDS: DIVALPROEX SODIUM 125 MG TABLET E.C. PO SCH ×2 (10:41→22:10)
[2018-07-05] MEDS: QUEtiapine FUMARATE 50 MG TABLET PO SCH (10:42)
[2018-07-05] MEDS: MEMANTINE HCL 10 MG TABLET (FP) PO SCH ×2 (10:42→22:10)
[2018-07-05] MEDS ORDERED: D5-1/2NS+20 MEQ KCL - 20 MEQ/1,000 ML INFUS.BAG IV SCH (10:45)
[2018-07-05 10:51] LABS: ALBUMIN 2.9 g/dl (3.4-5.0); ALK PHOS 75 U/L (45-117); ANION GAP 8 MMOL/L (8-16); BILIRUBIN,TOTAL 1.9 mg/dL (0.2-1); BLOOD UREA NITROGEN 36 mg/dL (7-18); CALCIUM 7.6 mg/dL (8.5-10.1); CHLORIDE 123 mmol/L (98-107); CHOLESTEROL 184 mg/dL (50-200); CO2 24 mmol/L (21-32); GLUCOSE,RANDOM 121 mg/dL (74-106); HDL CHOLESTEROL 32 mg/dL (40-60); POTASSIUM 3.5 mmol/L (3.5-5.1); SGOT/AST 51 U/L (15-37); SGPT/ALT 49 U/L (13-61); SODIUM 155 mmol/L (136-145); TOT PROT 5.9 g/dl (6.4-8.2); TRIGLYCERIDES 314 mg/dL (0-150)
[2018-07-05] MEDS ORDERED: DEXTROSE 5%-WATER - 50 ML IVPB ONE ×2 (10:53→18:02)
[2018-07-05] MEDS ORDERED: PIPERACILLIN/TAZOBACTAM 2.25 GM VIAL IVPB ONE ×2 (10:53→18:02)
[2018-07-05 11:17] LABS: ANISOCYTOSIS 1+; MACROCYTOSIS 1+; OVALOCYTE 1+; PLATELET ESTIMATE NORMAL
--- NOTE | 2018-07-05 12:01 | CON.CARD ---
Consult Consult Specialty:: Cardiology Referred by:: Dr. Thuy Crouch Reason for Consultation:: Cardiac evaluation - History of Present Illness Chief Complaint: Elevated troponin History of Present Illness: Patient is an 88 year old female with underlying history of Alzheimer dementia, a nxiety and depression who was transferred from [facility] with increasing lethargy and fever. She was febrile at 102, with leukocytosis and presence of lactic acid. ECG revealed sinus tachycardia and troponin was elevated to 0.6 suggestive of demand ischemia. Cardiology consultation was called. She wa seen by GI for possible EGD but family has agreed conservative management. She is DNR /DNI. She has underlying organic brain and is not able to give any history. 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 Home Medications - Allergies Allergies/Adverse Reactions: Allergies Allergy/AdvReac Type Severity Reaction Status Date / Time No Known Allergies Allergy Verified 07/05/15 14:29 - Home Medications Home Medications: Ambulatory Orders Acetaminophen 500 mg PO BID 07/03/18 Ascorbate Calcium [Vitamin C] 500 mg PO BID 07/03/18 Aspirin [Aspirin EC] 81 mg PO DAILY 07/03/18 Cadexomer Iodine [Iodosorb] 1 applic TP BID 07/03/18 Calcium 250Mg/Vit-D 125 Units [Oscal 250 mg+D -] 1 combo PO BID 07/03/18 Docusate Sodium 200 mg PO HS 07/03/18 Memantine HCl [Namenda -] 10 mg PO BID 07/03/18 Mirtazapine [Remeron -] 15 mg PO HS 07/03/18 Multivitamin,Ther and Minerals [Vitamin and Minerals] 1 each PO HS 07/03/18 Protein Hydrolysate,Milk [Liquid Protein Fortifier] 30 ml PO BID 07/03/18 levoFLOXacin 500 MG IVPB [Levaquin 500 mg/D5w] 500 mg IVPB BID 07/03/18 Family Disease History - Family Disease History Family Disease History: CA: Father (colon cancer), Sister (colon cancer) Review of Systems Unable to obtain ROS, reason: Unable to obtain Vital Signs: Vital Signs Temperature 98.5 F 07/05/18 09:00 Pulse Rate 87 07/05/18 09:00 Respiratory Rate 20 07/05/18 09:00 Blood Pressure 159/88 07/05/18 09:00 O2 Sat by Pulse Oximetry (%) 98 07/05/18 09:00 Neck: Yes: Supple Respiratory: Yes: Diminished Gastrointestinal: Yes: Normal Bowel Sounds, Soft. No: Tenderness Cardiovascular: Yes: Regular Rate and Rhythm, Tachycardia JVD: No PMI: Non-Displaced Heart Sounds: Yes: S1, S2 Murmur: Yes: Systolic Murmur, Grade 1 Edema: No - Other Data Labs, Other Data: CBC, BMP 07/05/18 09:20 07/05/18 09:20 INR, PTT INR 1.04 (0.83-1.09) 07/04/18 06:58 Troponin, BNP 07/05/18 09:20 Troponin I 0.61 H* Sinus tachycardia with nonspecific ST-T abnormality Imaging - Results Chest X-ray: Report Reviewed (Unremarkable) EKG: Report Reviewed Problem List - Problems (1) Demand ischemia Code(s): I24.8 - OTHER FORMS OF ACUTE ISCHEMIC HEART DISEASE (2) Altered mental status Code(s): R41.82 - ALTERED MENTAL STATUS, UNSPECIFIED (3) Severe sepsis Code(s): A41.9 - SEPSIS, UNSPECIFIED ORGANISM; R65.20 - SEVERE SEPSIS WITHOUT SEPTIC SHOCK (4) Tachycardia with heart rate 121-140 beats per minute Code(s): R00.0 - TACHYCARDIA, UNSPECIFIED (5) Dementia Code(s): F03.90 - UNSPECIFIED DEMENTIA WITHOUT BEHAVIORAL DISTURBANCE (6) Fever Code(s): R50.9 - FEVER, UNSPECIFIED Qualifiers: Fever type: unspecified Qualified Code(s): R50.9 - Fever, unspecified Assessment/Plan 1. Clinical presentation suggests severe sepsis with leukocytosis and lactic acidosis 2. Demand ischemia due to above 3. Sinus tachycardia due to above 4. Organic brain syndrome/Alzheimer dementia 5. Depression/anxiety PLAN: 1. Conservative management 2. Empiric antibiotics 3. Trend troponin to document peak Supportive care [place]ait[place] MD
[2018-07-05] MEDS ORDERED: ACETAMINOPHEN 1000 MG/100 ML VIAL (NON FORMULARY) IVPB PRN (12:35)
--- NOTE | 2018-07-05 12:37 | CONSULT ---
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 History - Admission Reason For Visit: SEVERE SEPSIS,AMS Speech Evaluation - Communication Primary Language: MAURITANIAN Communication: Yes: Non-Communicable (will repeat a few words) Oral Expression Ability: Yes: Non-Verbal - Speech Production Able to Make Needs Known: Yes: Severely Impaired Intelligibility: Yes: Mildly Impaired - Speech Characteristics Voice Phonatory-based Quality: Yes: Glottal Stone, Quivering, Tremor Speech Pattern: Impaired Speech Clarity: < 50% Nasal Resonance: Normal Articulation: Yes: Precise Rate of Speech: Too Slow Voice, Other Observations: Yes: Mouth Breathing - Language/Auditory Comprehension Follows: Yes: 1 Stage Simple Commands (gesture prompts only) Observation: Able to respond to yes/no queries: No, Yes/No Confusion: Yes, Comprehends Conversational Speech: No, Benefits from Slow Speech: Yes, Benefits from Repetiton: Yes, Benefits from Increased Volume of Speech: No - Language/Verbal Expression Able to Respond to Simple Queries: Yes: Severely Impaired Able to Communicate Wants and Needs: Yes: Severely Impaired Functional Communication Status: Yes: Severely Impaired Aware of Errors: No Attempts to Correct Errors: No Use of Gestures: Yes Written Expression: not examined Oral Expression: limited repetition of words Reading Comprehension: not examined Calculations: not examined Attention: Yes: Moderate Impairment - Memory/Perception residential Memory: Yes: Severely Impaired Short Term Memory: Yes: Severely Impaired - Swallow Evaluation/Bedside Assessment Current Nutritional Intake: Dysphagia Pureed, Gilmore Textured Liquids Oral Secretions: Yes: WFL Tracheostomy Present: No Patient on Ventilator: No Dentition: Yes: Adequate Facial Symmetry at Rest: Symmetrical Facial Symmetry on Retraction: Symmetrical Facial Movement: Involuntary Sensation: Normal Facial Comment: WFL for swallowing purposes Jaw Position: Open at Rest Against Resistance Opening: Normal (could not test) Against Resistance Closing: Normal (could not test) Lips, Comment: Appears WFL for swallow purposes Lingual Movement: Unable to Perform Lingual Comment: Appears WFL for swallow purposes Gag Reflex: Weak Bite Reflex: Present Velopharyngeal Movement: Normal Laryngeal Elevation: WFL Laryngeal Movement: Able to Palpate Needs Assistance: Yes Rate of Intake: Slow/Holding Bolus Size: Small Sensation: Bite Reflex Labial Seal: WFL Oral Prep Time: Increased A-P Transit: WFL Pocketing: None Timing of Swallow: WFL Odynophagia: Oral Coughing/Throat Clear: No Change in Voice: No Other Findings/Remarks: 88 yo female seen at bedside for swallow eval to r/o dysphagia. Pt is from [place] and aide present for this evaluation. Pt is non-verbal ((repeats a few words) A &Ox1 confused with anxiety. Pt presents with advance Alz dementia, depression and fall risk. Admitted to [facility] with AMS, fever (102), GI hemorrhage with sepsis. WOUND CARE CENTER CONSULTANT unable to perform oral motor examination secondary to mental status. Airway protection appears WFL. Limited vocalizations. Current diet: puree with thicken liquids. Pt given po trials of puree with total assistance revealed reduced acceptance ( except with personal aide), adequate bolus formation and increased transport time. Pharyngeal swallow are mildly delayed with no cough observed after the swallow. Pt given po trials of nectar thicken liquids with total assistance revealed reduced acceptance (except with personal aide and ONLY by STRAW), adequate bolus containment and increased transport time. Pharyngeal swallow are mildly delayed with no cough observed after the swallow. Recommendations - Speech Evaluation, Impression/Plan Impression: 88 yo female presents with moderate oral phase dysphagia secondary to advanced dementia status. No s/s of aspiration observed with pureed and nectar thicken via straw only. Caul Puller Goals: tolerate the least restrictive diet without s/s of aspiration. Short Term Goals: tolerate dysphagia puree with nectar thicken liquids without s /s aspiration. - Dysphagia Impressions/Plan Swallowing Skills: Impaired Dysphagia Impressions: Moderate Impairment, Risk of Aspiration *Silent aspiration: cannot be R/O at bedside Dysphagia Treatment Plan: Small Bites, Safe Rate, 1/2 tsp. at a time, Elevate HOB during feed Dysphagia Evaluation Summary: Pt is able to tolerate pureed with nectar thicken liquids (pt only uses straws to drink). Observe standard aspiration precautions Give medication in applesauce. Results given to recharger and PCP via chart. WOUND CARE CENTER CONSULTANT to follow up. - Recommendations Diet Consistency: Dysphagia Pureed Medication Administration: Crushed with applesauce Liquids: Gilmore Thick (via straw.)
--- NOTE | 2018-07-05 15:02 | PN ---
Progress Note, Physician History of Present Illness: patient much more awake and alert had bleeding per rectum daughter in the room aid in the room was transfused - Current Medication List Current Medications: Active Medications Acetaminophen (Ofirmev Injection -) 1,000 mg IVPB Q6H PRN PRN Reason: FEVER Divalproex Sodium (Depakote -) 125 mg PO BID KAMI Potassium Chloride/Dextrose/Sod Cl (D5-1/2ns+20 Meq Kcl -) 20 meq in 1,000 mls @ 75 mls/hr IV ASDIR KAMI Last Admin: 07/05/18 11:18 Dose: 75 mls/hr Pantoprazole Sodium 80 mg/ (Sodium Chloride) 100 mls @ 10 mls/hr IVPB Q10H KAMI Piperacillin Sod/Tazobactam (Sod 2.25 gm/ Dextrose) 50 mls @ 100 mls/hr IVPB Q8H-IV KAMI; Protocol Memantine (Namenda -) 10 mg PO BID KAMI Quetiapine Fumarate (Seroquel -) 50 mg PO DAILY KAMI - Objective Vital Signs: Vital Signs Temperature 98.4 F 07/05/18 14:43 Pulse Rate 95 H 07/05/18 14:43 Respiratory Rate 22 H 07/05/18 14:43 Blood Pressure 158/96 07/05/18 14:43 O2 Sat by Pulse Oximetry (%) 100 07/05/18 11:55 Constitutional: Yes: No Distress, Calm Cardiovascular: Yes: Regular Rate and Rhythm Respiratory: Yes: Regular, CTA Bilaterally Gastrointestinal: Yes: Normal Bowel Sounds, Soft Musculoskeletal: Yes: WNL Extremities: Yes: Other (heel wounds) Neurological: Yes: Alert, Other (alzimers) Labs: CBC, BMP 07/05/18 09:20 07/05/18 09:20 INR, PTT INR 1.04 (0.83-1.09) 07/04/18 06:58 Assessment/Plan Problem List - Problems (1) Altered mental status Code(s): R41.82 - ALTERED MENTAL STATUS, UNSPECIFIED (2) GI hemorrhage Code(s): K92.2 - GASTROINTESTINAL HEMORRHAGE, UNSPECIFIED (3) Severe sepsis Code(s): A41.9 - SEPSIS, UNSPECIFIED ORGANISM; R65.20 - SEVERE SEPSIS WITHOUT SEPTIC SHOCK (4) Dementia Code(s): F03.90 - UNSPECIFIED DEMENTIA WITHOUT BEHAVIORAL DISTURBANCE (5) Fever Code(s): R50.9 - FEVER, UNSPECIFIED Qualifiers: Fever type: unspecified Qualified Code(s): R50.9 - Fever, unspecified plan continue abx nutrition wound care spoke to family about the bleed per rectum rest as per he team wbc has increased worry is is the wbc due to bleed all cx are negative so far and the heel wound looks clean left heel wound is new avoid pressure on the heel
[2018-07-05 17:15] VITALS: BMI 23.5
--- NOTE | 2018-07-05 20:23 | PN.GI ---
GI Progress Note Subjective: GI NOte: Nurses report only smudges of black stool. Hb up to 10. Suspect that she has been bleeding over several days. Discussed case with daughter Zeynep twice today and will continue with conservative measures. - Objective Vital Signs: Vital Signs Temperature 99.2 F 07/05/18 18:30 Pulse Rate 91 H 07/05/18 18:30 Respiratory Rate 22 H 07/05/18 18:30 Blood Pressure 149/91 07/05/18 18:30 O2 Sat by Pulse Oximetry (%) 100 07/05/18 11:55 Laboratory Tests 07/03/18 07/04/18 07/04/18 14:12 06:58 10:20 WBC 16.2 H 15.1 H Hgb 8.1 L 6.0 L* PT with INR 12.30 BUN Creatinine 07/05/18 07/05/18 09:20 09:20 WBC 17.0 H Hgb 10.8 PT with INR BUN 36 H Creatinine 1.0 Constitutional: No Distress ...Auscultate: Yes: Normoactive Bowel Sounds ...Palpate: Yes: Soft, Other (nontender) Labs: CBC, BMP 07/05/18 09:20 07/05/18 09:20 INR, PTT INR 1.04 (0.83-1.09) 07/04/18 06:58 Assessment/Plan Impression: GI hemorrhage ? NSAID ulcer or erosions, Dieulafoy, GERD. vascular ectasias, diverticular disease, ischemic colitis and neoplasm among other neoplasms FH colon cancer Plan PPI drip Transfuse Conservative measures Advance diet as tolerated Problem List - Problems (1) GI hemorrhage Code(s): K92.2 - GASTROINTESTINAL HEMORRHAGE, UNSPECIFIED (2) Family history of colon cancer in father Code(s): Z80.0 - FAMILY HISTORY OF MALIGNANT NEOPLASM OF DIGESTIVE ORGANS (3) Family history of malignant neoplasm of colon in first degree relative diagnosed when younger than 60 years of age Code(s): Z80.0 - FAMILY HISTORY OF MALIGNANT NEOPLASM OF DIGESTIVE ORGANS (4) Tachycardia with heart rate 121-140 beats per minute Code(s): R00.0 - TACHYCARDIA, UNSPECIFIED (5) Altered mental status Code(s): R41.82 - ALTERED MENTAL STATUS, UNSPECIFIED (6) Dementia Code(s): F03.90 - UNSPECIFIED DEMENTIA WITHOUT BEHAVIORAL DISTURBANCE
[2018-07-05] MEDS ORDERED: DEXTROSE 5%-WATER - 1,000 ML IV SCH (20:30)
[2018-07-05] MEDS ORDERED: PT OWN MED DRAWER 7, Y5N ONE (22:05)
[2018-07-05] MEDS: POVIDONE-IODINE 10% SOLN 118 ML BOTTLE TP SCH ×2 (22:18→23:13)
[2018-07-05] MEDS: SILVER SULFADIAZINE 1% TOP CREAM 50 GM JAR TP SCH (22:19)
[2018-07-06] MEDS ORDERED: PIPERACILLIN/TAZOBACTAM 2.25 GM VIAL IVPB ONE ×3 (01:28→17:57)
[2018-07-06] MEDS ORDERED: DEXTROSE 5%-WATER - 50 ML IVPB ONE ×3 (01:28→17:58)
[2018-07-06] MEDS: PIPERACILLIN/TAZOB 2.25 GM 2.25 GM in DEXTROSE 5%-WATER - 50 ML IVPB SCH ×3 (01:50→19:00)
[2018-07-06] MEDS: PANTOPRAZOLE SODIUM 80 MG in SODIUM CHLORIDE 100 ML IVPB SCH ×2 (04:00→17:36)
[2018-07-06] MEDS: INSULIN SLIDING SCALE (NOVOLOG) 1 VIAL SQ SCH ×3 (06:02→17:36)
[2018-07-06 07:23] LABS: BASO % 0.3 % (0-2.0); EOS % 0.4 % (0-4.5); HEMOGLOBIN 10.1 GM/dL (10.7-15.3); LYMPH % 9.6 % (8-40); MCH 32.6 pg (25.7-33.7); MCHC 34.7 g/dl (32.0-36.0); MEAN PLT VOLUME 8.7 fl (7.5-11.1); MONO % 8.6 % (3.8-10.2); NEUT % 81.1 % (42.8-82.8); PLATELET COUNT 255 K/MM3 (134-434); RBC 3.08 M/mm3 (3.60-5.2); RDW 17.1 % (11.6-15.6); WHITE BLOOD COUNT 10.7 K/mm3 (4.0-10.0)
[2018-07-06 07:41] LABS: ALBUMIN 2.7 g/dl (3.4-5.0); ALK PHOS 70 U/L (45-117); ANION GAP 8 MMOL/L (8-16); BILIRUBIN,TOTAL 1.3 mg/dL (0.2-1); BLOOD UREA NITROGEN 22 mg/dL (7-18); CALCIUM 7.4 mg/dL (8.5-10.1); CHLORIDE 123 mmol/L (98-107); CO2 23 mmol/L (21-32); GLUCOSE,RANDOM 120 mg/dL (74-106); SGOT/AST 36 U/L (15-37); SGPT/ALT 39 U/L (13-61); SODIUM 154 mmol/L (136-145); TOT PROT 5.5 g/dl (6.4-8.2)
[2018-07-06 07:59] LABS: POTASSIUM 2.9 mmol/L (3.5-5.1)
[2018-07-06] MEDS ORDERED: DEXTROSE 5%-WATER - 1,000 ML with POTASSIUM CHLORIDE 20 MEQ IVPB SCH (10:06)
--- NOTE | 2018-07-06 10:44 | PN ---
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 Reportedly tolerated well. This am,sleeping deeply, with brief arousal. Unable to manipulate po trial due to lethargy. Left arm very swollen. Reviewed with nursing. Feed only if alert.
--- NOTE | 2018-07-06 11:23 | PN ---
Progress Note (short form) - Note Progress Note: Aide at bedside Pt awakens when called she is awake now and is being fed by Aide- no coughing Vital Signs - 24 hr 07/05/18 07/05/18 07/05/18 11:54 11:55 14:43 Temperature 98.7 F 98.4 F Pulse Rate 86 95 H Respiratory 20 22 H Rate Blood Pressure 150/91 158/96 O2 Sat by Pulse 100 Oximetry (%) 07/05/18 07/05/18 07/05/18 18:30 21:00 22:00 Temperature 99.2 F 98.8 F Pulse Rate 91 H 100 H Respiratory 22 H 20 Rate Blood Pressure 149/91 125/61 O2 Sat by Pulse 98 Oximetry (%) 07/06/18 06:15 Temperature 98.4 F Pulse Rate 74 Respiratory 20 Rate Blood Pressure 146/84 O2 Sat by Pulse Oximetry (%) Current Medications Generic Name Dose Route Start Last Admin Trade Name Freq PRN Reason Stop Dose Admin Acetaminophen 1,000 mg 07/05/18 12:35 Ofirmev Injection - IVPB Q6H PRN FEVER Divalproex Sodium 125 mg 07/05/18 22:00 07/05/18 22:10 Depakote - PO 125 mg BID KAMI Administration Pantoprazole Sodium 80 mg/ 100 mls @ 10 mls/hr 07/05/18 17:45 07/06/18 04:00 Sodium Chloride IVPB 10 mls/hr Q10H KAMI Administration 8 MG/HR Piperacillin Sod/Tazobactam 50 mls @ 100 mls/hr 07/05/18 18:00 07/06/18 01:50 Sod 2.25 gm/ Dextrose IVPB 100 mls/hr Q8H-IV KAMI Administration Protocol Potassium Chloride 10 meq in 100 mls @ 100 mls/hr 07/06/18 10:15 Potassium Chloride 10 Meq Premix Ivpb - IVPB 07/06/18 13:14 Q60M KAMI Potassium Chloride 20 meq/ 1,010 mls @ 75 mls/hr 07/06/18 10:06 Dextrose IVPB .[id number] KAMI Insulin Aspart 1 vial 07/06/18 07:00 07/06/18 06:02 Novolog Vial Sliding Scale - SQ Not Given TIDAC KAMI Protocol Memantine 10 mg 07/05/18 22:00 07/05/18 22:10 Namenda - PO 10 mg BID KAMI Administration Povidone Iodine 1 applic 07/05/18 17:45 07/05/18 23:13 Betadine 10% Solution - TP Not Given BID KAMI Quetiapine Fumarate 50 mg 07/06/18 10:00 Seroquel - PO DAILY KAMI Silver Sulfadiazine 1 applic 07/05/18 17:45 07/05/18 22:19 Silvadene - TP 1 applic DAILY KAMI Administration Laboratory Results - last 24 hr 07/05/18 07/05/18 07/05/18 09:20 13:07 17:59 WBC 17.0 H RBC Hgb Hct MCV MCH MCHC RDW Plt Count 248 MPV 8.7 Absolute Neuts (auto) Neutrophils % Neutrophils % (Manual) 87.8 H Band Neutrophils % 0.0 Lymphocytes % Lymphocytes % (Manual) 5.1 L Monocytes % Monocytes % (Manual) 5 Eosinophils % Eosinophils % (Manual) 0.0 Basophils % Basophils % (Manual) 0.0 Myelocytes % (Man) 1 Promyelocytes % (Man) 0 Blast Cells % (Manual) 0 Nucleated RBC % 1 H Metamyelocytes 0 Hypochromia 0 Platelet Estimate Normal Polychromasia 2+ Poikilocytosis 0 Anisocytosis 1+ Microcytosis 0 Macrocytosis 1+ Ovalocytes 1+ Sodium Potassium Chloride Carbon Dioxide Anion Gap BUN Creatinine Creat Clearance w eGFR POC Glucometer 182 146 Random Glucose Calcium Total Bilirubin AST ALT Alkaline Phosphatase Total Protein Albumin 07/06/18 07/06/18 07/06/18 06:00 06:00 06:01 WBC 10.7 H RBC 3.08 L Hgb 10.1 L Hct 29.0 L MCV 94.0 MCH 32.6 MCHC 34.7 RDW 17.1 H Plt Count 255 MPV 8.7 Absolute Neuts (auto) 8.7 H Neutrophils % 81.1 Neutrophils % (Manual) Band Neutrophils % Lymphocytes % 9.6 D Lymphocytes % (Manual) Monocytes % 8.6 Monocytes % (Manual) Eosinophils % 0.4 D Eosinophils % (Manual) Basophils % 0.3 Basophils % (Manual) Myelocytes % (Man) Promyelocytes % (Man) Blast Cells % (Manual) Nucleated RBC % 0 Metamyelocytes Hypochromia Platelet Estimate Polychromasia Poikilocytosis Anisocytosis Microcytosis Macrocytosis Ovalocytes Sodium 154 H Potassium 2.9 L* Chloride 123 H Carbon Dioxide 23 Anion Gap 8 BUN 22 H Creatinine 1.0 Creat Clearance w eGFR 52.57 POC Glucometer 129 Random Glucose 120 H Calcium 7.4 L Total Bilirubin 1.3 H AST 36 ALT 39 Alkaline Phosphatase 70 Total Protein 5.5 L Albumin 2.7 L S1 S2 RRR No pallor Lungs clear Oral dry Abd- soft, NT no edema dressings to feet B/L swollen left hand, ecchymosis PLAN s/p PRBC-- cbc stable on Protonix IV -- change to PO swallow eval noted noted elevated troponins family does not want aggressive management-- EGD cancelled- spoke with GI ASA dc IV antibiotics -- cultures negative,cxr no infiltrate, negative Flu-- per ID- empiric antibiotics replace potassium pt is DNR/DNI Problem List - Problems (1) Altered mental status Code(s): R41.82 - ALTERED MENTAL STATUS, UNSPECIFIED (2) GI hemorrhage Code(s): K92.2 - GASTROINTESTINAL HEMORRHAGE, UNSPECIFIED (3) Severe sepsis Code(s): A41.9 - SEPSIS, UNSPECIFIED ORGANISM; R65.20 - SEVERE SEPSIS WITHOUT SEPTIC SHOCK (4) Dementia Code(s): F03.90 - UNSPECIFIED DEMENTIA WITHOUT BEHAVIORAL DISTURBANCE (5) Fever Code(s): R50.9 - FEVER, UNSPECIFIED Qualifiers: Fever type: unspecified Qualified Code(s): R50.9 - Fever, unspecified (6) Metabolic encephalopathy Code(s): G93.41 - METABOLIC ENCEPHALOPATHY
[2018-07-06] MEDS: QUEtiapine FUMARATE 50 MG TABLET PO SCH (12:28)
[2018-07-06] MEDS: MEMANTINE HCL 10 MG TABLET (FP) PO SCH ×2 (12:28→22:07)
[2018-07-06] MEDS: DIVALPROEX SODIUM 125 MG TABLET E.C. PO SCH ×2 (12:28→22:08)
[2018-07-06] MEDS: POVIDONE-IODINE 10% SOLN 118 ML BOTTLE TP SCH (12:28)
[2018-07-06] MEDS: KCL 10 MEQ IVPB 10 MEQ/100 ML INFUS.BAG IVPB SCH ×3 (12:29→20:19)
[2018-07-06] MEDS: SILVER SULFADIAZINE 1% TOP CREAM 50 GM JAR TP SCH (12:29)
--- NOTE | 2018-07-06 13:33 | PN ---
Progress Note, Physician History of Present Illness: patient stable black stools no active bleeding tolerating diet - Current Medication List Current Medications: Active Medications Acetaminophen (Ofirmev Injection -) 1,000 mg IVPB Q6H PRN PRN Reason: FEVER Divalproex Sodium (Depakote -) 125 mg PO BID [facility] Last Admin: 07/06/18 12:28 Dose: 125 mg Pantoprazole Sodium 80 mg/ (Sodium Chloride) 100 mls @ 10 mls/hr IVPB Q10H [facility] Last Admin: 07/06/18 04:00 Dose: 10 mls/hr Piperacillin Sod/Tazobactam (Sod 2.25 gm/ Dextrose) 50 mls @ 100 mls/hr IVPB Q8H-IV [facility]; Protocol Last Admin: 07/06/18 12:29 Dose: 100 mls/hr Potassium Chloride 20 meq/ (Dextrose) 1,010 mls @ 75 mls/hr IVPB .[id number] [facility] Insulin Aspart (Novolog Vial Sliding Scale -) 1 vial SQ TIDAC [facility]; Protocol Last Admin: 07/06/18 12:42 Dose: Not Given Memantine (Namenda -) 10 mg PO BID [facility] Last Admin: 07/06/18 12:28 Dose: 10 mg Povidone Iodine (Betadine 10% Solution -) 1 applic TP BID [facility] Last Admin: 07/06/18 12:28 Dose: 1 applic Quetiapine Fumarate (Seroquel -) 50 mg PO DAILY [facility] Last Admin: 07/06/18 12:28 Dose: 50 mg Silver Sulfadiazine (Silvadene -) 1 applic TP DAILY [facility] Last Admin: 07/06/18 12:29 Dose: 1 applic - Objective Vital Signs: Vital Signs Temperature 98.4 F 07/06/18 06:15 Pulse Rate 74 07/06/18 06:15 Respiratory Rate 20 07/06/18 06:15 Blood Pressure 146/84 07/06/18 06:15 O2 Sat by Pulse Oximetry (%) 98 07/05/18 21:00 Constitutional: Yes: No Distress, Calm Cardiovascular: Yes: S1, S2 Respiratory: Yes: Regular, CTA Bilaterally Gastrointestinal: Yes: Normal Bowel Sounds, Soft Musculoskeletal: Yes: WNL Extremities: Yes: Other Wound/Incision: Yes: Other (heel wounds) Neurological: Yes: Alert Psychiatric: Yes: Other Labs: CBC, BMP 03/27/19 06:00 07/06/18 06:00 INR, PTT INR 1.04 (0.83-1.09) 07/04/18 06:58 Assessment/Plan Problem List - Problems (1) Altered mental status Code(s): R41.82 - ALTERED MENTAL STATUS, UNSPECIFIED (2) GI hemorrhage Code(s): K92.2 - GASTROINTESTINAL HEMORRHAGE, UNSPECIFIED (3) Severe sepsis Code(s): A41.9 - SEPSIS, UNSPECIFIED ORGANISM; R65.20 - SEVERE SEPSIS WITHOUT SEPTIC SHOCK (4) Dementia Code(s): F03.90 - UNSPECIFIED DEMENTIA WITHOUT BEHAVIORAL DISTURBANCE (5) Fever Code(s): R50.9 - FEVER, UNSPECIFIED Qualifiers: Fever type: unspecified Qualified Code(s): R50.9 - Fever, unspecified plan continue abx will stop abx tomorrow rest as per the team nutrition avoid pressure on the heels
--- NOTE | 2018-07-06 16:27 | PN ---
Progress Note, Physician History of Present Illness: Black stools planned for conservative therapy. EGD declined. Tolerated meal. - Current Medication List Current Medications: Active Medications Acetaminophen (Ofirmev Injection -) 1,000 mg IVPB Q6H PRN PRN Reason: FEVER Divalproex Sodium (Depakote -) 125 mg PO BID [facility] Last Admin: 07/06/18 12:28 Dose: 125 mg Pantoprazole Sodium 80 mg/ (Sodium Chloride) 100 mls @ 10 mls/hr IVPB Q10H [facility] Last Admin: 07/06/18 04:00 Dose: 10 mls/hr Piperacillin Sod/Tazobactam (Sod 2.25 gm/ Dextrose) 50 mls @ 100 mls/hr IVPB Q8H-IV [facility]; Protocol Last Admin: 07/06/18 12:29 Dose: 100 mls/hr Potassium Chloride 20 meq/ (Dextrose) 1,010 mls @ 75 mls/hr IVPB .[id number] [facility] Insulin Aspart (Novolog Vial Sliding Scale -) 1 vial SQ TIDAC [facility]; Protocol Last Admin: 07/06/18 12:42 Dose: Not Given Memantine (Namenda -) 10 mg PO BID [facility] Last Admin: 07/06/18 12:28 Dose: 10 mg Povidone Iodine (Betadine 10% Solution -) 1 applic TP BID [facility] Last Admin: 07/06/18 12:28 Dose: 1 applic Quetiapine Fumarate (Seroquel -) 50 mg PO DAILY [facility] Last Admin: 07/06/18 12:28 Dose: 50 mg Silver Sulfadiazine (Silvadene -) 1 applic TP DAILY [facility] Last Admin: 07/06/18 12:29 Dose: 1 applic - Objective Vital Signs: Vital Signs Temperature 97.8 F 07/06/18 14:21 Pulse Rate 85 07/06/18 14:21 Respiratory Rate 22 H 07/06/18 14:21 Blood Pressure 123/64 07/06/18 14:21 O2 Sat by Pulse Oximetry (%) 98 07/05/18 21:00 Constitutional: Yes: No Distress, Calm, Thin Neck: Yes: Supple Cardiovascular: Yes: Regular Rate and Rhythm Respiratory: Yes: Regular, Diminished Gastrointestinal: Yes: Soft, Hypoactive Bowel Sounds Edema: No Labs: CBC, BMP 07/06/18 06:00 07/06/18 06:00 INR, PTT INR 1.04 (0.83-1.09) 07/04/18 06:58 Problem List - Problems (1) Demand ischemia Code(s): I24.8 - OTHER FORMS OF ACUTE ISCHEMIC HEART DISEASE (2) GI hemorrhage Code(s): K92.2 - GASTROINTESTINAL HEMORRHAGE, UNSPECIFIED Qualifiers: GI bleed type/associated pathology: melena Qualified Code(s): K92.1 - Melena (3) Dementia Code(s): F03.90 - UNSPECIFIED DEMENTIA WITHOUT BEHAVIORAL DISTURBANCE Qualifiers: Dementia type: unspecified type Assessment/Plan 1. GI hemorrhage ? NSAID ulcer or erosions, Dieulafoy, GERD. vascular ectasias, diverticular disease, ischemic colitis and neoplasm among other neoplasms FH colon cancer 2. Demand ischemia due to above 3. 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 Hypernatremia and hypokalemia PLAN: 1. Conservative management, monitor Hgb post transfusion, PPI, NSAID avoidance 2. Empiric antibiotic course 3. Trend troponin to document peak 4. Free H20 and K repletion
--- NOTE | 2018-07-06 18:17 | PN.GI ---
GI Progress Note Subjective: GI NOte: No BMs today. Hb stable. Tolerating solids - Objective Vital Signs: Vital Signs Temperature 98.2 F 07/06/18 18:11 Pulse Rate 77 07/06/18 18:11 Respiratory Rate 22 H 07/06/18 18:11 Blood Pressure 147/57 L 07/06/18 18:11 O2 Sat by Pulse Oximetry (%) 98 07/05/18 21:00 Laboratory Tests 07/04/18 07/05/18 07/06/18 10:20 09:20 06:00 Hgb 6.0 L* 10.8 10.1 L Constitutional: Calm ...Auscultate: Yes: Normoactive Bowel Sounds ...Palpate: Yes: Soft, Other (nontender) Labs: CBC, BMP 07/06/18 06:00 07/06/18 06:00 INR, PTT INR 1.04 (0.83-1.09) 07/04/18 06:58 Assessment/Plan Impression: GI hemorrhage resolved FH colon cancer Plan Stop PPI drip Conservative measures Problem List - Problems (1) GI hemorrhage Code(s): K92.2 - GASTROINTESTINAL HEMORRHAGE, UNSPECIFIED Qualifiers: GI bleed type/associated pathology: melena Qualified Code(s): K92.1 - Melena (2) Family history of colon cancer in father Code(s): Z80.0 - FAMILY HISTORY OF MALIGNANT NEOPLASM OF DIGESTIVE ORGANS (3) Family history of malignant neoplasm of colon in first degree relative diagnosed when younger than 60 years of age Code(s): Z80.0 - FAMILY HISTORY OF MALIGNANT NEOPLASM OF DIGESTIVE ORGANS (4) Tachycardia with heart rate 121-140 beats per minute Code(s): R00.0 - TACHYCARDIA, UNSPECIFIED (5) Altered mental status Code(s): R41.82 - ALTERED MENTAL STATUS, UNSPECIFIED (6) Dementia Code(s): F03.90 - UNSPECIFIED DEMENTIA WITHOUT BEHAVIORAL DISTURBANCE Qualifiers: Dementia type: unspecified type
[2018-07-06] MEDS: PANTOPRAZOLE 40 MG TABLET (FP) PO SCH (22:08)
[2018-07-06] MEDS: MAG HYDROX/AL HYDROX/SIMETH 30 ML UNIT-DOSE CUP PO SCH (22:13)
[2018-07-07] MEDS ORDERED: PIPERACILLIN/TAZOBACTAM 2.25 GM VIAL IVPB ONE ×2 (00:47→09:16)
[2018-07-07] MEDS ORDERED: DEXTROSE 5%-WATER - 50 ML IVPB ONE ×2 (00:48→09:16)
[2018-07-07] MEDS: MAG HYDROX/AL HYDROX/SIMETH 30 ML UNIT-DOSE CUP PO SCH ×5 (01:03→23:13)
[2018-07-07] MEDS: POTASSIUM CHLORIDE 20 MEQ in DEXTROSE 5%-WATER - 1,000 ML IVPB SCH ×3 (01:55→17:17)
[2018-07-07] MEDS: PIPERACILLIN/TAZOB 2.25 GM 2.25 GM in DEXTROSE 5%-WATER - 50 ML IVPB SCH ×2 (02:02→09:30)
[2018-07-07] MEDS: POVIDONE-IODINE 10% SOLN 118 ML BOTTLE TP SCH ×3 (02:06→21:40)
[2018-07-07] MEDS: INSULIN SLIDING SCALE (NOVOLOG) 1 VIAL SQ SCH ×3 (06:51→17:32)
[2018-07-07 08:24] LABS: BASO % 0.7 % (0-2.0); HEMATOCRIT 25.8 % (32.4-45.2); HEMOGLOBIN 8.6 GM/dL (10.7-15.3); LYMPH % 13.7 % (8-40); MCH 30.9 pg (25.7-33.7); MCHC 33.3 g/dl (32.0-36.0); MEAN CELL VOLUME 92.8 fl (80-96); MEAN PLT VOLUME 8.1 fl (7.5-11.1); MONO % 8.7 % (3.8-10.2); NEUT % 73.9 % (42.8-82.8); PLATELET COUNT 236 K/MM3 (134-434); RBC 2.78 M/mm3 (3.60-5.2); RDW 16.4 % (11.6-15.6); WHITE BLOOD COUNT 7.7 K/mm3 (4.0-10.0)
[2018-07-07 08:51] LABS: ANION GAP 8 MMOL/L (8-16); BLOOD UREA NITROGEN 14 mg/dL (7-18); CALCIUM 7.4 mg/dL (8.5-10.1); CHLORIDE 118 mmol/L (98-107); CO2 25 mmol/L (21-32); GLUCOSE,RANDOM 106 mg/dL (74-106); POTASSIUM 3.3 mmol/L (3.5-5.1); SODIUM 151 mmol/L (136-145)
[2018-07-07] MEDS ORDERED: PT OWN MED DRAWER 7, Y5N ONE ×2 (09:15→21:20)
[2018-07-07] MEDS: PANTOPRAZOLE 40 MG TABLET (FP) PO SCH (09:28)
[2018-07-07] MEDS: MEMANTINE HCL 10 MG TABLET (FP) PO SCH ×2 (09:28→21:39)
[2018-07-07] MEDS: QUEtiapine FUMARATE 50 MG TABLET PO SCH (09:28)
[2018-07-07] MEDS: DIVALPROEX SODIUM 125 MG TABLET E.C. PO SCH ×2 (09:29→21:39)
[2018-07-07] MEDS: SILVER SULFADIAZINE 1% TOP CREAM 50 GM JAR TP SCH (09:30)
--- NOTE | 2018-07-07 11:19 | PN ---
Progress Note (short form) - Note Progress Note: Aide at bedside Pt awakens when called she is awake now and is being fed by Aide- no coughing had dark colored stools per RN and aide Vital Signs - 24 hr 07/06/18 07/06/18 07/07/18 14:21 18:11 02:31 Temperature 97.8 F 98.2 F 98.3 F Pulse Rate 85 77 74 Respiratory 22 H 22 H 22 H Rate Blood Pressure 123/64 147/57 L 136/77 07/07/18 06:20 Temperature 98.4 F Pulse Rate 79 Respiratory 22 H Rate Blood Pressure 136/62 Current Medications Generic Name Dose Route Start Last Admin Trade Name Freq PRN Reason Stop Dose Admin Acetaminophen 1,000 mg 07/05/18 12:35 Ofirmev Injection - IVPB Q6H PRN FEVER Al Hydroxide/Mg Hydroxide 30 ml 07/06/18 18:30 07/07/18 05:38 Mylanta Oral Suspension - PO 30 ml Q6HPO KAMI Administration Divalproex Sodium 125 mg 07/05/18 22:00 07/07/18 09:29 Depakote - PO 125 mg BID KAMI Administration Potassium Chloride 20 meq/ 1,010 mls @ 75 mls/hr 07/07/18 01:15 07/07/18 01: 55 Dextrose IVPB 75 mls/hr Q13H KAMI Administration Insulin Aspart 1 vial 07/06/18 07:00 07/07/18 06:51 Novolog Vial Sliding Scale - SQ Not Given TIDAC [facility] Protocol Memantine 10 mg 07/05/18 22:00 07/07/18 09:28 Namenda - PO 10 mg BID KAMI Administration Pantoprazole Sodium 40 mg 07/06/18 22:00 07/07/18 09:28 Protonix - PO 40 mg BID KAMI Administration Potassium Chloride 40 meq 07/07/18 11:17 Potassium Chloride Oral Liquid PO 07/07/18 11:18 ONCE ONE Povidone Iodine 1 applic 07/05/18 17:45 07/07/18 09:30 Betadine 10% Solution - TP 1 applic BID KAMI Administration Quetiapine Fumarate 50 mg 07/06/18 10:00 07/07/18 09:28 Seroquel - PO 50 mg DAILY KAMI Administration Silver Sulfadiazine 1 applic 07/05/18 17:45 07/07/18 09:30 Silvadene - TP 1 applic DAILY KAMI Administration Laboratory Results - last 24 hr 07/06/18 07/07/18 07/07/18 21:50 05:19 07:30 WBC 7.7 RBC 2.78 L Hgb 8.6 L Hct 25.8 L MCV 92.8 MCH 30.9 MCHC 33.3 RDW 16.4 H Plt Count 236 MPV 8.1 Absolute Neuts (auto) 5.7 Neutrophils % 73.9 Lymphocytes % 13.7 D Monocytes % 8.7 Eosinophils % 3.0 D Basophils % 0.7 Nucleated RBC % 0 Sodium Potassium Chloride Carbon Dioxide Anion Gap BUN Creatinine Creat Clearance w eGFR POC Glucometer 104 Random Glucose Calcium Troponin I Stool Occult Blood Positive 07/07/18 07:30 WBC RBC Hgb Hct MCV MCH MCHC RDW Plt Count MPV Absolute Neuts (auto) Neutrophils % Lymphocytes % Monocytes % Eosinophils % Basophils % Nucleated RBC % Sodium 151 H Potassium 3.3 L Chloride 118 H Carbon Dioxide 25 Anion Gap 8 BUN 14 Creatinine 1.0 Creat Clearance w eGFR 52.57 POC Glucometer Random Glucose 106 Calcium 7.4 L Troponin I 0.18 H Stool Occult Blood S1 S2 RRR No pallor Lungs clear Oral dry Abd- soft, NT no edema dressings to feet B/L swollen left hand, ecchymosis PLAN s/p PRBC-- cbc stable on Protonix IV -- change to PO swallow eval noted noted elevated troponins-- decreased today family does not want aggressive management-- EGD cancelled- spoke with GI ASA dc IV antibiotics -- cultures negative,cxr no infiltrate, negative Flu--dc today replace potassium pt is DNR/DNI recheck CBC today afternoon Problem List - Problems (1) Altered mental status Code(s): R41.82 - ALTERED MENTAL STATUS, UNSPECIFIED (2) GI hemorrhage Code(s): K92.2 - GASTROINTESTINAL HEMORRHAGE, UNSPECIFIED Qualifiers: GI bleed type/associated pathology: melena Qualified Code(s): K92.1 - Melena (3) Severe sepsis Code(s): A41.9 - SEPSIS, UNSPECIFIED ORGANISM; R65.20 - SEVERE SEPSIS WITHOUT SEPTIC SHOCK (4) Dementia Code(s): F03.90 - UNSPECIFIED DEMENTIA WITHOUT BEHAVIORAL DISTURBANCE Qualifiers: Dementia type: unspecified type (5) Fever Code(s): R50.9 - FEVER, UNSPECIFIED Qualifiers: Fever type: unspecified Qualified Code(s): R50.9 - Fever, unspecified (6) Metabolic encephalopathy Code(s): G93.41 - METABOLIC ENCEPHALOPATHY
--- NOTE | 2018-07-07 11:30 | PN ---
Progress Note, Physician History of Present Illness: Black stools clearing planned for conservative therapy. EGD declined. Tolerating meals. - Current Medication List Current Medications: Active Medications Acetaminophen (Ofirmev Injection -) 1,000 mg IVPB Q6H PRN PRN Reason: FEVER Al Hydroxide/Mg Hydroxide (Mylanta Oral Suspension -) 30 ml PO Q6HPO [facility] Last Admin: 07/07/18 05:38 Dose: 30 ml Divalproex Sodium (Depakote -) 125 mg PO BID [facility] Last Admin: 07/07/18 09:29 Dose: 125 mg Potassium Chloride 20 meq/ (Dextrose) 1,010 mls @ 75 mls/hr IVPB Q13H [facility] Last Admin: 07/07/18 01:55 Dose: 75 mls/hr Insulin Aspart (Novolog Vial Sliding Scale -) 1 vial SQ TIDAC [facility]; Protocol Last Admin: 07/07/18 06:51 Dose: Not Given Memantine (Namenda -) 10 mg PO BID [facility] Last Admin: 07/07/18 09:28 Dose: 10 mg Pantoprazole Sodium (Protonix -) 40 mg PO BID [facility] Last Admin: 07/07/18 09:28 Dose: 40 mg Potassium Chloride (Potassium Chloride Oral Liquid) 40 meq PO ONCE ONE Stop: 07/07/18 11:18 Povidone Iodine (Betadine 10% Solution -) 1 applic TP BID [facility] Last Admin: 07/07/18 09:30 Dose: 1 applic Quetiapine Fumarate (Seroquel -) 50 mg PO DAILY [facility] Last Admin: 07/07/18 09:28 Dose: 50 mg Silver Sulfadiazine (Silvadene -) 1 applic TP DAILY [facility] Last Admin: 07/07/18 09:30 Dose: 1 applic - Objective Vital Signs: Vital Signs Temperature 98.4 F 07/07/18 06:20 Pulse Rate 79 07/07/18 06:20 Respiratory Rate 22 H 07/07/18 06:20 Blood Pressure 136/62 07/07/18 06:20 O2 Sat by Pulse Oximetry (%) 98 07/06/18 09:00 Constitutional: Yes: No Distress, Calm Neck: Yes: Supple Cardiovascular: Yes: Regular Rate and Rhythm Respiratory: Yes: Regular, Diminished, On Nasal O2 Gastrointestinal: Yes: Soft, Hypoactive Bowel Sounds Edema: No Labs: CBC, BMP 07/07/18 07:30 07/07/18 07:30 INR, PTT INR 1.04 (0.83-1.09) 07/04/18 06:58 Problem List - Problems (1) Demand ischemia Code(s): I24.8 - OTHER FORMS OF ACUTE ISCHEMIC HEART DISEASE (2) GI hemorrhage Code(s): K92.2 - GASTROINTESTINAL HEMORRHAGE, UNSPECIFIED Qualifiers: GI bleed type/associated pathology: melena Qualified Code(s): K92.1 - Melena (3) Dementia Code(s): F03.90 - UNSPECIFIED DEMENTIA WITHOUT BEHAVIORAL DISTURBANCE Qualifiers: Dementia type: unspecified type Assessment/Plan 1. GI hemorrhage resolved ? NSAID ulcer or erosions, Dieulafoy, GERD. vascular ectasias, diverticular disease, ischemic colitis and neoplasm among other neoplasms FH colon cancer 2. Demand ischemia due to above 3. 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 Hypernatremia and hypokalemia PLAN: 1. Conservative management, monitor Hgb post transfusion, PPI, NSAID avoidance 2. Empiric antibiotic course 3. Troponin downtrending 4. Free H20 and K repletion
[2018-07-07] MEDS ORDERED: POTASSIUM CHLORIDE ORAL LIQUID 20 MEQ/15 ML PO ONE (12:30)
--- NOTE | 2018-07-07 12:37 | PN ---
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
[2018-07-07] MEDS: PANTOPRAZOLE SODIUM 80 MG in SODIUM CHLORIDE 100 ML IVPB SCH ×2 (13:46→23:07)
--- NOTE | 2018-07-07 15:37 | PN ---
Progress Note, Physician History of Present Illness: patient stable no new issues - Current Medication List Current Medications: Active Medications Acetaminophen (Ofirmev Injection -) 1,000 mg IVPB Q6H PRN PRN Reason: FEVER Al Hydroxide/Mg Hydroxide (Mylanta Oral Suspension -) 30 ml PO Q6HPO [facility] Last Admin: 07/07/18 12:16 Dose: Not Given Divalproex Sodium (Depakote -) 125 mg PO BID [facility] Last Admin: 07/07/18 09:29 Dose: 125 mg Potassium Chloride 20 meq/ (Dextrose) 1,010 mls @ 75 mls/hr IVPB Q13H [facility] Last Admin: 07/07/18 15:20 Dose: Not Given Pantoprazole Sodium 80 mg/ (Sodium Chloride) 100 mls @ 10 mls/hr IVPB Q10H [facility] Last Admin: 07/07/18 13:46 Dose: 10 mls/hr Insulin Aspart (Novolog Vial Sliding Scale -) 1 vial SQ TIDAC [facility]; Protocol Last Admin: 07/07/18 12:16 Dose: Not Given Memantine (Namenda -) 10 mg PO BID [facility] Last Admin: 07/07/18 09:28 Dose: 10 mg Povidone Iodine (Betadine 10% Solution -) 1 applic TP BID [facility] Last Admin: 07/07/18 09:30 Dose: 1 applic Quetiapine Fumarate (Seroquel -) 50 mg PO DAILY [facility] Last Admin: 07/07/18 09:28 Dose: 50 mg Silver Sulfadiazine (Silvadene -) 1 applic TP DAILY [facility] Last Admin: 07/07/18 09:30 Dose: 1 applic - Objective Vital Signs: Vital Signs Temperature 98.5 F 07/07/18 14:00 Pulse Rate 90 07/07/18 14:00 Respiratory Rate 22 H 07/07/18 14:00 Blood Pressure 132/96 07/07/18 14:00 O2 Sat by Pulse Oximetry (%) 98 07/06/18 09:00 Constitutional: Yes: No Distress, Calm Cardiovascular: Yes: S1, S2 Respiratory: Yes: Regular, CTA Bilaterally Gastrointestinal: Yes: Normal Bowel Sounds, Soft Musculoskeletal: Yes: WNL Extremities: Yes: Other Neurological: Yes: Alert, Oriented Psychiatric: Yes: Alert, Oriented Labs: CBC, BMP 07/07/18 07:30 07/07/18 07:30 INR, PTT INR 1.04 (0.83-1.09) 07/04/18 06:58 Assessment/Plan Problem List - Problems (1) Altered mental status Code(s): R41.82 - ALTERED MENTAL STATUS, UNSPECIFIED (2) GI hemorrhage Code(s): K92.2 - GASTROINTESTINAL HEMORRHAGE, UNSPECIFIED (3) Severe sepsis Code(s): A41.9 - SEPSIS, UNSPECIFIED ORGANISM; R65.20 - SEVERE SEPSIS WITHOUT SEPTIC SHOCK (4) Dementia Code(s): F03.90 - UNSPECIFIED DEMENTIA WITHOUT BEHAVIORAL DISTURBANCE (5) Fever Code(s): R50.9 - FEVER, UNSPECIFIED Qualifiers: Fever type: unspecified Qualified Code(s): R50.9 - Fever, unspecified plan continue abx rest as per the team nutrition avoid pressure on the heels
[2018-07-07 17:51] LABS: HEMATOCRIT 26.1 % (32.4-45.2); HEMOGLOBIN 8.6 GM/dL (10.7-15.3); MCHC 32.9 g/dl (32.0-36.0); MEAN CELL VOLUME 94.2 fl (80-96); MEAN PLT VOLUME 8.5 fl (7.5-11.1); PLATELET COUNT 242 K/MM3 (134-434); RBC 2.77 M/mm3 (3.60-5.2); RDW 16.6 % (11.6-15.6); WHITE BLOOD COUNT 8.6 K/mm3 (4.0-10.0)
--- NOTE | 2018-07-07 21:59 | PN.GI ---
GI Progress Note Subjective: GI NOte: Passing black stool but not briskly. Although Hb dropped it did not fall further on repeat later today. I discussed the situation at length with her daughter Caitlin several times today. I offered an EGD but she replied that she and her sister mutually agree to restrict care to conservative measures at this time. - Objective Vital Signs: Vital Signs Temperature 98.9 F 07/07/18 20:54 Pulse Rate 77 07/07/18 20:54 Respiratory Rate 20 07/07/18 20:54 Blood Pressure 135/66 07/07/18 20:54 O2 Sat by Pulse Oximetry (%) 98 07/06/18 09:00 Laboratory Tests 07/04/18 07/05/18 07/06/18 10:20 09:20 06:00 Hgb 6.0 L* 10.8 10.1 L 07/07/18 07/07/18 07:30 17:00 Hgb 8.6 L 8.6 L Constitutional: No Distress ...Auscultate: Yes: Normoactive Bowel Sounds ...Palpate: Yes: Soft, Other (nontender) Labs: CBC, BMP 07/07/18 17:00 07/07/18 07:30 INR, PTT INR 1.04 (0.83-1.09) 07/04/18 06:58 Assessment/Plan Impression: GI hemorrhage resolved ?? FH colon cancer Plan Continue PPI drip Resume diet Conservative measures Problem List - Problems (1) GI hemorrhage Code(s): K92.2 - GASTROINTESTINAL HEMORRHAGE, UNSPECIFIED Qualifiers: GI bleed type/associated pathology: melena Qualified Code(s): K92.1 - Melena (2) Family history of colon cancer in father Code(s): Z80.0 - FAMILY HISTORY OF MALIGNANT NEOPLASM OF DIGESTIVE ORGANS (3) Family history of malignant neoplasm of colon in first degree relative diagnosed when younger than 60 years of age Code(s): Z80.0 - FAMILY HISTORY OF MALIGNANT NEOPLASM OF DIGESTIVE ORGANS (4) Tachycardia with heart rate 121-140 beats per minute Code(s): R00.0 - TACHYCARDIA, UNSPECIFIED (5) Altered mental status Code(s): R41.82 - ALTERED MENTAL STATUS, UNSPECIFIED (6) Dementia Code(s): F03.90 - UNSPECIFIED DEMENTIA WITHOUT BEHAVIORAL DISTURBANCE Qualifiers: Dementia type: unspecified type
[2018-07-08] MEDS: POTASSIUM CHLORIDE 20 MEQ in DEXTROSE 5%-WATER - 1,000 ML IVPB SCH ×4 (04:48→22:19)
[2018-07-08] MEDS: INSULIN SLIDING SCALE (NOVOLOG) 1 VIAL SQ SCH ×3 (06:28→17:37)
[2018-07-08] MEDS: MAG HYDROX/AL HYDROX/SIMETH 30 ML UNIT-DOSE CUP PO SCH ×4 (06:37→23:16)
[2018-07-08 07:49] LABS: BASO % 0.5 % (0-2.0); EOS % 3.1 % (0-4.5); HEMATOCRIT 25.4 % (32.4-45.2); HEMOGLOBIN 8.5 GM/dL (10.7-15.3); LYMPH % 14.3 % (8-40); MCH 31.2 pg (25.7-33.7); MCHC 33.5 g/dl (32.0-36.0); MEAN CELL VOLUME 93.3 fl (80-96); MEAN PLT VOLUME 8.3 fl (7.5-11.1); MONO % 7.5 % (3.8-10.2); NEUT % 74.6 % (42.8-82.8); PLATELET COUNT 216 K/MM3 (134-434); RBC 2.73 M/mm3 (3.60-5.2); RDW 16.3 % (11.6-15.6); WHITE BLOOD COUNT 7.4 K/mm3 (4.0-10.0)
[2018-07-08 07:55] LABS: ANION GAP 7 MMOL/L (8-16); BLOOD UREA NITROGEN 10 mg/dL (7-18); CALCIUM 7.7 mg/dL (8.5-10.1); CHLORIDE 113 mmol/L (98-107); CO2 23 mmol/L (21-32); CREATININE 0.7 mg/dL (0.55-1.3); GLUCOSE,RANDOM 94 mg/dL (74-106); POTASSIUM 3.6 mmol/L (3.5-5.1); SODIUM 143 mmol/L (136-145)
[2018-07-08] MEDS ORDERED: PT OWN MED DRAWER 7, Y5N ONE ×2 (08:33→11:26)
[2018-07-08] MEDS: PANTOPRAZOLE SODIUM 80 MG in SODIUM CHLORIDE 100 ML IVPB SCH (09:42)
[2018-07-08] MEDS: QUEtiapine FUMARATE 50 MG TABLET PO SCH (11:37)
[2018-07-08] MEDS: MEMANTINE HCL 10 MG TABLET (FP) PO SCH ×2 (11:38→22:28)
[2018-07-08] MEDS: DIVALPROEX SODIUM 125 MG TABLET E.C. PO SCH ×2 (11:38→22:28)
[2018-07-08] MEDS: POVIDONE-IODINE 10% SOLN 118 ML BOTTLE TP SCH ×2 (11:39→22:28)
[2018-07-08] MEDS: SILVER SULFADIAZINE 1% TOP CREAM 50 GM JAR TP SCH (11:39)
--- NOTE | 2018-07-08 11:45 | PN ---
Progress Note, Physician History of Present Illness: Black stools clearing planned for conservative therapy. EGD declined. Tolerating meals. - Current Medication List Current Medications: Active Medications Acetaminophen (Ofirmev Injection -) 1,000 mg IVPB Q6H PRN PRN Reason: FEVER Al Hydroxide/Mg Hydroxide (Mylanta Oral Suspension -) 30 ml PO Q6HPO [facility] Last Admin: 07/08/18 06:37 Dose: 30 ml Divalproex Sodium (Depakote -) 125 mg PO BID [facility] Last Admin: 07/07/18 21:39 Dose: 125 mg Potassium Chloride 20 meq/ (Dextrose) 1,010 mls @ 75 mls/hr IVPB Q13H [facility] Last Admin: 07/08/18 06:43 Dose: 75 mls/hr Pantoprazole Sodium 80 mg/ (Sodium Chloride) 100 mls @ 10 mls/hr IVPB Q10H [facility] Last Admin: 07/08/18 09:42 Dose: 10 mls/hr Insulin Aspart (Novolog Vial Sliding Scale -) 1 vial SQ TIDAC [facility]; Protocol Last Admin: 07/08/18 06:28 Dose: Not Given Memantine (Namenda -) 10 mg PO BID [facility] Last Admin: 07/07/18 21:39 Dose: 10 mg Povidone Iodine (Betadine 10% Solution -) 1 applic TP BID [facility] Last Admin: 07/07/18 21:40 Dose: 1 applic Quetiapine Fumarate (Seroquel -) 50 mg PO DAILY [facility] Last Admin: 07/07/18 09:28 Dose: 50 mg Silver Sulfadiazine (Silvadene -) 1 applic TP DAILY [facility] Last Admin: 07/07/18 09:30 Dose: 1 applic - Objective Vital Signs: Vital Signs Temperature 97.9 F 07/08/18 10:00 Pulse Rate 66 07/08/18 10:00 Respiratory Rate 18 07/08/18 10:00 Blood Pressure 145/72 07/08/18 10:00 O2 Sat by Pulse Oximetry (%) 98 07/06/18 09:00 Constitutional: Yes: No Distress, Calm, Thin Neck: Yes: Supple Cardiovascular: Yes: Regular Rate and Rhythm Respiratory: Yes: Regular, Diminished Gastrointestinal: Yes: Soft, Hypoactive Bowel Sounds Edema: No Labs: CBC, BMP 07/08/18 06:40 07/08/18 06:40 INR, PTT INR 1.04 (0.83-1.09) 07/04/18 06:58 Problem List - Problems (1) Demand ischemia Code(s): I24.8 - OTHER FORMS OF ACUTE ISCHEMIC HEART DISEASE (2) GI hemorrhage Code(s): K92.2 - GASTROINTESTINAL HEMORRHAGE, UNSPECIFIED Qualifiers: GI bleed type/associated pathology: melena Qualified Code(s): K92.1 - Melena (3) Dementia Code(s): F03.90 - UNSPECIFIED DEMENTIA WITHOUT BEHAVIORAL DISTURBANCE Qualifiers: Dementia type: unspecified type Assessment/Plan 1. GI hemorrhage resolved ? NSAID ulcer or erosions, Dieulafoy, GERD. vascular ectasias, diverticular disease, ischemic colitis and neoplasm among other neoplasms FH colon cancer 2. Demand ischemia due to above 3. 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 Hypernatremia and hypokalemia improving PLAN: 1. Conservative management, monitor Hgb post transfusion, PPI, NSAID avoidance 2. Off Empiric antibiotic 3. Troponin downtrending 4. Free H20 and K repletion
--- NOTE | 2018-07-08 12:29 | PN ---
Progress Note (short form) - Note Progress Note: pt seen/ examined chart reviewed awake/ comfortable all f/u noted Aide at bedside dark stool no distress on PPI drip Vital Signs Temp 97.9 F 07/08/18 10:00 Pulse 66 07/08/18 10:00 Resp 18 07/08/18 10:00 BP 145/72 07/08/18 10:00 Pulse Ox 98 07/06/18 09:00 Intake & Output 07/07/18 07/08/18 07/08/18 23:59 11:59 23:59 Intake Total 1050 935 Balance 1050 935 Intake: IV 935 protonix gtt at 10 cc/hr 110 saline lock #1 825 IVPB 950 Oral 100 Other: Voiding Method Incontinent Incontinent # Unmeasured Voids Void 2 Bowel Movement Yes Yes # Bowel Movements 1 1 Active Medications Acetaminophen (Ofirmev Injection -) 1,000 mg IVPB Q6H PRN PRN Reason: FEVER Al Hydroxide/Mg Hydroxide (Mylanta Oral Suspension -) 30 ml PO Q6HPO [facility] Last Admin: 07/08/18 11:38 Dose: 30 ml Divalproex Sodium (Depakote -) 125 mg PO BID [facility] Last Admin: 07/08/18 11:38 Dose: 125 mg Potassium Chloride 20 meq/ (Dextrose) 1,010 mls @ 75 mls/hr IVPB Q13H [facility] Last Admin: 07/08/18 06:43 Dose: 75 mls/hr Pantoprazole Sodium 80 mg/ (Sodium Chloride) 100 mls @ 10 mls/hr IVPB Q10H [facility] Last Admin: 07/08/18 09:42 Dose: 10 mls/hr Insulin Aspart (Novolog Vial Sliding Scale -) 1 vial SQ TIDAC [facility]; Protocol Last Admin: 07/08/18 11:47 Dose: Not Given Memantine (Namenda -) 10 mg PO BID [facility] Last Admin: 07/08/18 11:38 Dose: 10 mg Povidone Iodine (Betadine 10% Solution -) 1 applic TP BID [facility] Last Admin: 07/08/18 11:39 Dose: 1 applic Quetiapine Fumarate (Seroquel -) 50 mg PO DAILY [facility] Last Admin: 07/08/18 11:37 Dose: 50 mg Silver Sulfadiazine (Silvadene -) 1 applic TP DAILY [facility] Last Admin: 07/08/18 11:39 Dose: 1 applic CBC, BMP 07/08/18 06:40 07/08/18 06:40 Microbiology 07/03/18 14:00 Blood Culture - Preliminary Blood - Peripheral Venous NO GROWTH OBTAINED AFTER 96 HOURS, INCUBATION TO CONTINUE FOR 1 DAYS. 07/03/18 14:10 Blood Culture - Preliminary Blood - Peripheral Venous NO GROWTH OBTAINED AFTER 96 HOURS, INCUBATION TO CONTINUE FOR 1 DAYS. Physical Exam S1 S2 RRR No pallor Lungs clear Abd- soft, NT no edema dressings to feet B/L Neuro- awake PLAN stable on Protonix IV drip-- monitor cbc in am if stable-- will consider d/c pt is DNR/DNI discussed with nursing staff also will follow
--- NOTE | 2018-07-08 12:37 | PN ---
Progress Note, Physician History of Present Illness: doing much better tolerating diet - Current Medication List Current Medications: Active Medications Acetaminophen (Ofirmev Injection -) 1,000 mg IVPB Q6H PRN PRN Reason: FEVER Al Hydroxide/Mg Hydroxide (Mylanta Oral Suspension -) 30 ml PO Q6HPO [facility] Last Admin: 07/08/18 11:38 Dose: 30 ml Divalproex Sodium (Depakote -) 125 mg PO BID [facility] Last Admin: 07/08/18 11:38 Dose: 125 mg Potassium Chloride 20 meq/ (Dextrose) 1,010 mls @ 75 mls/hr IVPB Q13H [facility] Last Admin: 07/08/18 06:43 Dose: 75 mls/hr Pantoprazole Sodium 80 mg/ (Sodium Chloride) 100 mls @ 10 mls/hr IVPB Q10H [facility] Last Admin: 07/08/18 09:42 Dose: 10 mls/hr Insulin Aspart (Novolog Vial Sliding Scale -) 1 vial SQ TIDAC [facility]; Protocol Last Admin: 07/08/18 11:47 Dose: Not Given Memantine (Namenda -) 10 mg PO BID [facility] Last Admin: 07/08/18 11:38 Dose: 10 mg Povidone Iodine (Betadine 10% Solution -) 1 applic TP BID [facility] Last Admin: 07/08/18 11:39 Dose: 1 applic Quetiapine Fumarate (Seroquel -) 50 mg PO DAILY [facility] Last Admin: 07/08/18 11:37 Dose: 50 mg Silver Sulfadiazine (Silvadene -) 1 applic TP DAILY [facility] Last Admin: 07/08/18 11:39 Dose: 1 applic - Objective Vital Signs: Vital Signs Temperature 97.9 F 07/08/18 10:00 Pulse Rate 66 07/08/18 10:00 Respiratory Rate 18 07/08/18 10:00 Blood Pressure 145/72 07/08/18 10:00 O2 Sat by Pulse Oximetry (%) 98 07/06/18 09:00 Constitutional: Yes: No Distress, Calm Cardiovascular: Yes: Regular Rate and Rhythm Respiratory: Yes: Regular, CTA Bilaterally Gastrointestinal: Yes: Normal Bowel Sounds, Soft Musculoskeletal: Yes: WNL Extremities: Yes: WNL Labs: CBC, BMP 07/08/18 06:40 07/08/18 06:40 INR, PTT INR 1.04 (0.83-1.09) 07/04/18 06:58 Assessment/Plan Problem List - Problems (1) Altered mental status Code(s): R41.82 - ALTERED MENTAL STATUS, UNSPECIFIED (2) GI hemorrhage Code(s): K92.2 - GASTROINTESTINAL HEMORRHAGE, UNSPECIFIED (3) Severe sepsis Code(s): A41.9 - SEPSIS, UNSPECIFIED ORGANISM; R65.20 - SEVERE SEPSIS WITHOUT SEPTIC SHOCK (4) Dementia Code(s): F03.90 - UNSPECIFIED DEMENTIA WITHOUT BEHAVIORAL DISTURBANCE (5) Fever Code(s): R50.9 - FEVER, UNSPECIFIED Qualifiers: Fever type: unspecified Qualified Code(s): R50.9 - Fever, unspecified plan stable off of abx nutrition rest as per the team
--- NOTE | 2018-07-08 14:12 | PN ---
Progress Note (short form) - Note Progress Note: GI NOte: Had large black BM today but Hb stable so believe this is old blood. Will stop PPI drip and given PPI po BID. Anticipate that stools will become brown soon. Will give Venofer. Dr. Alicia swenson be covering this weekend. Problem List - Problems (1) GI hemorrhage Code(s): K92.2 - GASTROINTESTINAL HEMORRHAGE, UNSPECIFIED Qualifiers: GI bleed type/associated pathology: melena Qualified Code(s): K92.1 - Melena (2) Family history of colon cancer in father Code(s): Z80.0 - FAMILY HISTORY OF MALIGNANT NEOPLASM OF DIGESTIVE ORGANS (3) Family history of malignant neoplasm of colon in first degree relative diagnosed when younger than 60 years of age Code(s): Z80.0 - FAMILY HISTORY OF MALIGNANT NEOPLASM OF DIGESTIVE ORGANS (4) Tachycardia with heart rate 121-140 beats per minute Code(s): R00.0 - TACHYCARDIA, UNSPECIFIED (5) Altered mental status Code(s): R41.82 - ALTERED MENTAL STATUS, UNSPECIFIED (6) Dementia Code(s): F03.90 - UNSPECIFIED DEMENTIA WITHOUT BEHAVIORAL DISTURBANCE Qualifiers: Dementia type: unspecified type
[2018-07-08] MEDS: PANTOPRAZOLE 40 MG TABLET (FP) PO SCH (22:28)
[2018-07-09] MEDS: MAG HYDROX/AL HYDROX/SIMETH 30 ML UNIT-DOSE CUP PO SCH ×3 (05:34→17:55)
[2018-07-09] MEDS: POTASSIUM CHLORIDE 20 MEQ in DEXTROSE 5%-WATER - 1,000 ML IVPB SCH ×3 (05:34→17:59)
[2018-07-09] MEDS: INSULIN SLIDING SCALE (NOVOLOG) 1 VIAL SQ SCH ×3 (06:30→16:41)
[2018-07-09] MEDS ORDERED: PT OWN MED DRAWER 7, Y5N ONE (09:07)
[2018-07-09] MEDS: PANTOPRAZOLE 40 MG TABLET (FP) PO SCH ×2 (10:03→22:26)
[2018-07-09] MEDS: DIVALPROEX SODIUM 125 MG TABLET E.C. PO SCH ×2 (10:03→22:26)
[2018-07-09] MEDS: MEMANTINE HCL 10 MG TABLET (FP) PO SCH ×2 (10:03→22:26)
[2018-07-09] MEDS: SILVER SULFADIAZINE 1% TOP CREAM 50 GM JAR TP SCH (10:04)
[2018-07-09] MEDS: QUEtiapine FUMARATE 50 MG TABLET PO SCH (10:04)
[2018-07-09] MEDS: POVIDONE-IODINE 10% SOLN 118 ML BOTTLE TP SCH ×2 (10:04→22:29)
[2018-07-09 10:24] LABS: BASO % 0.5 % (0-2.0); EOS % 4.4 % (0-4.5); HEMATOCRIT 26.6 % (32.4-45.2); HEMOGLOBIN 8.8 GM/dL (10.7-15.3); LYMPH % 12.1 % (8-40); MCH 31.2 pg (25.7-33.7); MCHC 33.1 g/dl (32.0-36.0); MEAN CELL VOLUME 94.2 fl (80-96); MEAN PLT VOLUME 8.5 fl (7.5-11.1); MONO % 7.9 % (3.8-10.2); NEUT % 75.1 % (42.8-82.8); PLATELET COUNT 233 K/MM3 (134-434); RBC 2.82 M/mm3 (3.60-5.2); RDW 16.2 % (11.6-15.6); WHITE BLOOD COUNT 7.7 K/mm3 (4.0-10.0)
--- NOTE | 2018-07-09 12:42 | PN ---
Progress Note (short form) - Note Progress Note: Pt awakens when called no dark colored stools per RN Vital Signs - 24 hr 07/08/18 07/08/18 07/08/18 14:45 18:39 21:00 Temperature 98.6 F 98.1 F Pulse Rate 76 76 Respiratory 18 18 20 Rate Blood Pressure 127/78 137/81 O2 Sat by Pulse Oximetry (%) 07/08/18 07/09/18 07/09/18 22:00 06:00 09:00 Temperature 98.2 F Pulse Rate 81 74 Respiratory 20 20 Rate Blood Pressure 127/95 144/72 O2 Sat by Pulse 100 Oximetry (%) Current Medications Generic Name Dose Route Start Last Admin Trade Name Freq PRN Reason Stop Dose Admin Acetaminophen 1,000 mg 07/05/18 12:35 Ofirmev Injection - IVPB Q6H PRN FEVER Al Hydroxide/Mg Hydroxide 30 ml 07/06/18 18:30 07/09/18 12:09 Mylanta Oral Suspension - PO 30 ml Q6HPO [facility] Administration Divalproex Sodium 125 mg 07/05/18 22:00 07/09/18 10:03 Depakote - PO 125 mg BID [facility] Administration Potassium Chloride 20 meq/ 1,010 mls @ 75 mls/hr 07/07/18 01:15 07/09/18 05: 34 Dextrose IVPB Not Given Q13H [facility] Insulin Aspart 1 vial 07/06/18 07:00 07/09/18 11:45 Novolog Vial Sliding Scale - SQ Not Given TIDAC [facility] Protocol Memantine 10 mg 07/05/18 22:00 07/09/18 10:03 Namenda - PO 10 mg BID [facility] Administration Pantoprazole Sodium 40 mg 07/08/18 22:00 07/09/18 10:03 Protonix - PO 40 mg BID [facility] Administration Povidone Iodine 1 applic 07/05/18 17:45 07/09/18 10:04 Betadine 10% Solution - TP 1 applic BID [facility] Administration Quetiapine Fumarate 50 mg 07/06/18 10:00 07/09/18 10:04 Seroquel - PO 50 mg DAILY [facility] Administration Silver Sulfadiazine 1 applic 07/05/18 17:45 07/09/18 10:04 Silvadene - TP 1 applic DAILY [facility] Administration Laboratory Results - last 24 hr 07/08/18 07/09/18 07/09/18 17:34 06:28 09:35 WBC 7.7 RBC 2.82 L Hgb 8.8 L Hct 26.6 L MCV 94.2 MCH 31.2 MCHC 33.1 RDW 16.2 H Plt Count 233 MPV 8.5 Absolute Neuts (auto) 5.8 Neutrophils % 75.1 Lymphocytes % 12.1 Monocytes % 7.9 Eosinophils % 4.4 Basophils % 0.5 Nucleated RBC % 0 POC Glucometer 110 89 07/09/18 11:41 WBC RBC Hgb Hct MCV MCH MCHC RDW Plt Count MPV Absolute Neuts (auto) Neutrophils % Lymphocytes % Monocytes % Eosinophils % Basophils % Nucleated RBC % POC Glucometer 82 S1 S2 RRR No pallor Lungs clear Oral dry Abd- soft, NT no edema dressings to feet B/L swollen left hand, ecchymosis PLAN s/p PRBC-- cbc stable protonix PO swallow eval notedy family does not want aggressive management-- EGD cancelled ASA dc IV antibiotics dc pt is DNR/DNI Problem List - Problems (1) Altered mental status Code(s): R41.82 - ALTERED MENTAL STATUS, UNSPECIFIED (2) GI hemorrhage Code(s): K92.2 - GASTROINTESTINAL HEMORRHAGE, UNSPECIFIED Qualifiers: GI bleed type/associated pathology: melena Qualified Code(s): K92.1 - Melena (3) Severe sepsis Code(s): A41.9 - SEPSIS, UNSPECIFIED ORGANISM; R65.20 - SEVERE SEPSIS WITHOUT SEPTIC SHOCK (4) Dementia Code(s): F03.90 - UNSPECIFIED DEMENTIA WITHOUT BEHAVIORAL DISTURBANCE Qualifiers: Dementia type: unspecified type (5) Fever Code(s): R50.9 - FEVER, UNSPECIFIED Qualifiers: Fever type: unspecified Qualified Code(s): R50.9 - Fever, unspecified (6) Metabolic encephalopathy Code(s): G93.41 - METABOLIC ENCEPHALOPATHY
--- NOTE | 2018-07-09 14:42 | PN ---
Progress Note, Physician History of Present Illness: Black stools clearing planned for conservative therapy. EGD declined. Tolerating meals. - Current Medication List Current Medications: Active Medications Acetaminophen (Ofirmev Injection -) 1,000 mg IVPB Q6H PRN PRN Reason: FEVER Al Hydroxide/Mg Hydroxide (Mylanta Oral Suspension -) 30 ml PO Q6HPO [facility] Last Admin: 07/09/18 12:09 Dose: 30 ml Divalproex Sodium (Depakote -) 125 mg PO BID [facility] Last Admin: 07/09/18 10:03 Dose: 125 mg Potassium Chloride 20 meq/ (Dextrose) 1,010 mls @ 75 mls/hr IVPB Q13H [facility] Last Admin: 07/09/18 12:44 Dose: 75 mls/hr Insulin Aspart (Novolog Vial Sliding Scale -) 1 vial SQ TIDAC [facility]; Protocol Last Admin: 07/09/18 11:45 Dose: Not Given Memantine (Namenda -) 10 mg PO BID [facility] Last Admin: 07/09/18 10:03 Dose: 10 mg Pantoprazole Sodium (Protonix -) 40 mg PO BID [facility] Last Admin: 07/09/18 10:03 Dose: 40 mg Povidone Iodine (Betadine 10% Solution -) 1 applic TP BID [facility] Last Admin: 07/09/18 10:04 Dose: 1 applic Quetiapine Fumarate (Seroquel -) 50 mg PO DAILY [facility] Last Admin: 07/09/18 10:04 Dose: 50 mg Silver Sulfadiazine (Silvadene -) 1 applic TP DAILY [facility] Last Admin: 07/09/18 10:04 Dose: 1 applic - Objective Vital Signs: Vital Signs Temperature 98.2 F 07/09/18 10:00 Pulse Rate 71 07/09/18 10:00 Respiratory Rate 20 07/09/18 10:00 Blood Pressure 144/76 07/09/18 10:00 O2 Sat by Pulse Oximetry (%) 100 07/09/18 09:00 Constitutional: Yes: No Distress, Calm Neck: Yes: Supple Cardiovascular: Yes: Regular Rate and Rhythm Respiratory: Yes: Regular, Diminished Gastrointestinal: Yes: Soft, Hypoactive Bowel Sounds Edema: No Labs: CBC, BMP 07/09/18 09:35 07/08/18 06:40 INR, PTT INR 1.04 (0.83-1.09) 07/04/18 06:58 Problem List - Problems (1) Demand ischemia Code(s): I24.8 - OTHER FORMS OF ACUTE ISCHEMIC HEART DISEASE (2) GI hemorrhage Code(s): K92.2 - GASTROINTESTINAL HEMORRHAGE, UNSPECIFIED Qualifiers: GI bleed type/associated pathology: melena Qualified Code(s): K92.1 - Melena (3) Dementia Code(s): F03.90 - UNSPECIFIED DEMENTIA WITHOUT BEHAVIORAL DISTURBANCE Qualifiers: Dementia type: unspecified type Assessment/Plan 1. GI hemorrhage resolved, ? NSAID ulcer or erosions, Dieulafoy, GERD. vascular ectasias, diverticular disease, ischemic colitis and neoplasm among other neoplasms FH colon cancer 2. Demand ischemia due to above 3. 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 Hypernatremia and hypokalemia improving PLAN: 1. Conservative management, Hgb stable post transfusion, PPI, NSAID avoidance 2. Off Empiric antibiotic 3. Troponin downtrending
[2018-07-09] MEDS ORDERED: ACETAMINOPHEN 325 MG TABLET (FP) PO PRN (19:30)
[2018-07-10] MEDS: MAG HYDROX/AL HYDROX/SIMETH 30 ML UNIT-DOSE CUP PO SCH ×4 (00:51→17:02)
[2018-07-10] MEDS: POTASSIUM CHLORIDE 20 MEQ in DEXTROSE 5%-WATER - 1,000 ML IVPB SCH ×2 (01:53→07:39)
[2018-07-10] MEDS: INSULIN SLIDING SCALE (NOVOLOG) 1 VIAL SQ SCH ×3 (06:38→16:45)
[2018-07-10 08:51] LABS: HEMATOCRIT 26.3 % (32.4-45.2); HEMOGLOBIN 8.8 GM/dL (10.7-15.3); MCH 31.9 pg (25.7-33.7); MCHC 33.6 g/dl (32.0-36.0); MEAN CELL VOLUME 94.9 fl (80-96); MEAN PLT VOLUME 8.3 fl (7.5-11.1); PLATELET COUNT 243 K/MM3 (134-434); RBC 2.77 M/mm3 (3.60-5.2); RDW 16.2 % (11.6-15.6); WHITE BLOOD COUNT 6.9 K/mm3 (4.0-10.0)
--- NOTE | 2018-07-10 09:50 | PN ---
Problem List - Problems (1) Altered mental status Code(s): R41.82 - ALTERED MENTAL STATUS, UNSPECIFIED (2) GI hemorrhage Code(s): K92.2 - GASTROINTESTINAL HEMORRHAGE, UNSPECIFIED Qualifiers: GI bleed type/associated pathology: melena Qualified Code(s): K92.1 - Melena (3) Severe sepsis Code(s): A41.9 - SEPSIS, UNSPECIFIED ORGANISM; R65.20 - SEVERE SEPSIS WITHOUT SEPTIC SHOCK (4) Dementia Code(s): F03.90 - UNSPECIFIED DEMENTIA WITHOUT BEHAVIORAL DISTURBANCE Qualifiers: Dementia type: unspecified type (5) Fever Code(s): R50.9 - FEVER, UNSPECIFIED Qualifiers: Fever type: unspecified Qualified Code(s): R50.9 - Fever, unspecified (6) Metabolic encephalopathy Code(s): G93.41 - METABOLIC ENCEPHALOPATHY
--- NOTE | 2018-07-10 09:56 | DS ---
Physical Examination Vital Signs: Vital Signs Temperature 97.8 F 07/10/18 09:49 Pulse Rate 76 07/10/18 09:49 Respiratory Rate 20 07/10/18 09:49 Blood Pressure 152/74 07/10/18 09:49 O2 Sat by Pulse Oximetry (%) 99 07/09/18 21:00 Constitutional: Yes: No Distress, Calm Cardiovascular: Yes: Regular Rate and Rhythm Respiratory: Yes: CTA Bilaterally Gastrointestinal: Yes: Normal Bowel Sounds, Soft. No: Tenderness Edema: No Labs: CBC, BMP 07/10/18 08:10 07/08/18 06:40 Discharge Summary Reason For Visit: SEVERE SEPSIS,AMS Current Active Problems Altered mental status (Acute) Demand ischemia (Acute) Family history of colon cancer in father (Acute) Family history of malignant neoplasm of colon in first degree relative diagnosed when younger than 60 years of age (Acute) GI hemorrhage (Acute) Metabolic encephalopathy (Acute) Severe sepsis (Acute) Tachycardia with heart rate 121-140 beats per minute (Acute) Hospital Course: Admitted for elevated temps, acute severe anemia, melena,elevated troponins Was initially on iv antibiotics-- cultures later came back as negative, CXR negative, Influenza screen negative--iv antibiotics discontinued afterwards Pt was evaluated by GI and ID, Cardiology Pt received PRBC Family refused Endoscopy, pt placed on protonix drip H/HCT stable on Protonix drip later switched to PO protonix BID no further GI bleeding pt tolerating food no cardiac intervention per Cardiology troponins trending down stable for dc to [facility] Pt is DNR/DNI Condition: Stable - Instructions Disposition: [facility] - Home Medications Comprehensive Discharge Medication List: Ambulatory Orders Acetaminophen 500 mg PO BID 07/03/18 Ascorbate Calcium [Vitamin C] 500 mg PO BID 07/03/18 Aspirin [Aspirin EC] 81 mg PO DAILY 07/03/18 Calcium 250Mg/Vit-D 125 Units [Oscal 250 mg+D -] 1 combo PO BID 07/03/18 Docusate Sodium 200 mg PO HS 07/03/18 Memantine HCl [Namenda -] 10 mg PO BID 07/03/18 Mirtazapine [Remeron -] 15 mg PO HS 07/03/18 Multivitamin,Ther and Minerals [Vitamin and Minerals] 1 each PO HS 07/03/18 Protein Hydrolysate,Milk [Liquid Protein Fortifier] 30 ml PO BID 07/03/18 Pantoprazole Sodium [Protonix] 40 mg PO BID #60 tablet. 07/10/18
[2018-07-10] MEDS: QUEtiapine FUMARATE 50 MG TABLET PO SCH (10:02)
[2018-07-10] MEDS: PANTOPRAZOLE 40 MG TABLET (FP) PO SCH ×2 (10:02→21:54)
[2018-07-10] MEDS: POVIDONE-IODINE 10% SOLN 118 ML BOTTLE TP SCH ×2 (10:04→21:56)
[2018-07-10] MEDS: DIVALPROEX SODIUM 125 MG TABLET E.C. PO SCH ×2 (10:05→21:55)
[2018-07-10] MEDS: MEMANTINE HCL 10 MG TABLET (FP) PO SCH ×2 (10:05→21:55)
[2018-07-10] MEDS: SILVER SULFADIAZINE 1% TOP CREAM 50 GM JAR TP SCH (10:06)
--- NOTE | 2018-07-10 14:45 | PN ---
Progress Note, Physician History of Present Illness: Pt seen and examined. Events noted. Pt is arousable, without acute distress, afebrile. - Current Medication List Current Medications: Active Medications Acetaminophen (Tylenol -) 650 mg PO Q6H PRN PRN Reason: FEVER Last Admin: 07/10/18 12:49 Dose: 650 mg Al Hydroxide/Mg Hydroxide (Mylanta Oral Suspension -) 30 ml PO Q6HPO [facility] Last Admin: 07/10/18 11:29 Dose: 30 ml Divalproex Sodium (Depakote -) 125 mg PO BID [facility] Last Admin: 07/10/18 10:05 Dose: 125 mg Insulin Aspart (Novolog Vial Sliding Scale -) 1 vial SQ TIDAC [facility]; Protocol Last Admin: 07/10/18 11:31 Dose: Not Given Memantine (Namenda -) 10 mg PO BID [facility] Last Admin: 07/10/18 10:05 Dose: 10 mg Pantoprazole Sodium (Protonix -) 40 mg PO BID [facility] Last Admin: 07/10/18 10:02 Dose: 40 mg Povidone Iodine (Betadine 10% Solution -) 1 applic TP BID [facility] Last Admin: 07/10/18 10:04 Dose: 1 applic Quetiapine Fumarate (Seroquel -) 50 mg PO DAILY [facility] Last Admin: 07/10/18 10:02 Dose: 50 mg Silver Sulfadiazine (Silvadene -) 1 applic TP DAILY [facility] Last Admin: 07/10/18 10:06 Dose: 1 applic - Objective Vital Signs: Vital Signs Temperature 97.9 F 07/10/18 14:27 Pulse Rate 74 07/10/18 14:27 Respiratory Rate 20 07/10/18 14:27 Blood Pressure 114/44 L 07/10/18 14:27 O2 Sat by Pulse Oximetry (%) 100 07/10/18 09:00 Constitutional: Yes: No Distress Cardiovascular: Yes: Regular Rate and Rhythm Respiratory: Yes: Regular Gastrointestinal: Yes: Normal Bowel Sounds, Soft Extremities: Yes: WNL Labs: CBC, BMP 07/10/18 08:10 07/08/18 06:40 INR, PTT INR 1.04 (0.83-1.09) 07/04/18 06:58 Assessment/Plan Fever GI bleed Anemia AMS Dementia -- Pt remains afebrile, vitals stable off antibiotics -- GI following -- H/H stable
[2018-07-10] MEDS ORDERED: PT OWN MED DRAWER 7, Y5N ONE (16:26)
[2018-07-10] MEDS ORDERED: INSULIN (NOVOLOG) ASPART 100 UNITS/ML 10ML VIAL ONE (17:31)
[2018-07-11] MEDS: MAG HYDROX/AL HYDROX/SIMETH 30 ML UNIT-DOSE CUP PO SCH ×4 (00:50→18:20)
[2018-07-11] MEDS: INSULIN SLIDING SCALE (NOVOLOG) 1 VIAL SQ SCH ×2 (07:00→17:35)
[2018-07-11 07:25] VITALS: BP 151/74; PULSE 77; TEMP 98.6
--- NOTE | 2018-07-11 11:46 | PN ---
Progress Note, Physician History of Present Illness: Black stools clearing planned for conservative therapy. EGD declined. Tolerating meals. - Current Medication List Current Medications: Active Medications Acetaminophen (Tylenol -) 650 mg PO Q6H PRN PRN Reason: FEVER Last Admin: 07/10/18 12:49 Dose: 650 mg Al Hydroxide/Mg Hydroxide (Mylanta Oral Suspension -) 30 ml PO Q6HPO [facility] Last Admin: 07/11/18 06:20 Dose: 30 ml Divalproex Sodium (Depakote -) 125 mg PO BID [facility] Last Admin: 07/10/18 21:55 Dose: 125 mg Insulin Aspart (Novolog Vial Sliding Scale -) [facility]; Protocol Last Admin: 07/11/18 07:00 Dose: Not Given Memantine (Namenda -) 10 mg PO BID [facility] Last Admin: 07/10/18 21:55 Dose: 10 mg Pantoprazole Sodium (Protonix -) 40 mg PO BID [facility] Last Admin: 07/10/18 21:54 Dose: 40 mg Povidone Iodine (Betadine 10% Solution -) 1 applic TP BID [facility] Last Admin: 07/10/18 21:56 Dose: 1 applic Quetiapine Fumarate (Seroquel -) 50 mg PO DAILY [facility] Last Admin: 07/10/18 10:02 Dose: 50 mg Silver Sulfadiazine (Silvadene -) 1 applic TP DAILY [facility] Last Admin: 07/10/18 10:06 Dose: 1 applic - Objective Vital Signs: Vital Signs Temperature 98.6 F 07/11/18 06:05 Pulse Rate 77 07/11/18 06:05 Respiratory Rate 20 07/11/18 06:05 Blood Pressure 151/74 07/11/18 06:05 O2 Sat by Pulse Oximetry (%) 100 07/10/18 21:00 Constitutional: Yes: No Distress, Calm Neck: Yes: Supple Cardiovascular: Yes: Regular Rate and Rhythm Respiratory: Yes: Regular, Diminished Gastrointestinal: Yes: Soft, Hypoactive Bowel Sounds Edema: Yes Labs: CBC, BMP 07/10/18 08:10 07/08/18 06:40 INR, PTT INR 1.04 (0.83-1.09) 07/04/18 06:58 Problem List - Problems (1) Demand ischemia Code(s): I24.8 - OTHER FORMS OF ACUTE ISCHEMIC HEART DISEASE (2) GI hemorrhage Code(s): K92.2 - GASTROINTESTINAL HEMORRHAGE, UNSPECIFIED Qualifiers: GI bleed type/associated pathology: melena Qualified Code(s): K92.1 - Melena (3) Dementia Code(s): F03.90 - UNSPECIFIED DEMENTIA WITHOUT BEHAVIORAL DISTURBANCE Qualifiers: Dementia type: unspecified type Assessment/Plan 1. GI hemorrhage resolved, ? NSAID ulcer or erosions, [place], GERD. vascular ectasias, diverticular disease, ischemic colitis and neoplasm among other neoplasms FH colon cancer 2. Demand ischemia due to above 3. 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 Hypernatremia and hypokalemia improving PLAN: 1. Conservative management, Hgb stable post transfusion, PPI, NSAID avoidance 2. Off Empiric antibiotic 3. Troponin downtrending 4. D/c planning
[2018-07-11] MEDS: QUEtiapine FUMARATE 50 MG TABLET PO SCH (11:51)
[2018-07-11] MEDS: PANTOPRAZOLE 40 MG TABLET (FP) PO SCH (11:51)
[2018-07-11] MEDS: MEMANTINE HCL 10 MG TABLET (FP) PO SCH (11:51)
[2018-07-11] MEDS: DIVALPROEX SODIUM 125 MG TABLET E.C. PO SCH (11:52)
[2018-07-11] MEDS: SILVER SULFADIAZINE 1% TOP CREAM 50 GM JAR TP SCH (11:54)
[2018-07-11] MEDS: POVIDONE-IODINE 10% SOLN 118 ML BOTTLE TP SCH (11:54)
--- NOTE | 2018-07-11 12:41 | PN ---
Progress Note (short form) - Note Progress Note: pt seen/ examined comfortable aid at bedside chart reviewed Vital Signs Temp 98.6 F 07/11/18 06:05 Pulse 77 07/11/18 06:05 Resp 20 07/11/18 06:05 BP 151/74 07/11/18 06:05 Pulse Ox 100 07/10/18 21:00 Intake & Output 07/10/18 07/11/18 07/11/18 23:59 11:59 23:59 Intake Total 150 Balance 150 Intake: Oral 150 Other: Voiding Method Diaper Diaper # Unmeasured Voids Void 2 Bowel Movement No # Bowel Movements 1 Active Medications Acetaminophen (Tylenol -) 650 mg PO Q6H PRN PRN Reason: FEVER Last Admin: 07/10/18 12:49 Dose: 650 mg Al Hydroxide/Mg Hydroxide (Mylanta Oral Suspension -) 30 ml PO Q6HPO [facility] Last Admin: 07/11/18 11:55 Dose: 30 ml Divalproex Sodium (Depakote -) 125 mg PO BID [facility] Last Admin: 07/11/18 11:52 Dose: 125 mg Insulin Aspart (Novolog Vial Sliding Scale -) 1 vial SQ BIDAC [facility]; Protocol Last Admin: 07/11/18 07:00 Dose: Not Given Memantine (Namenda -) 10 mg PO BID [facility] Last Admin: 07/11/18 11:51 Dose: 10 mg Pantoprazole Sodium (Protonix -) 40 mg PO BID [facility] Last Admin: 07/11/18 11:51 Dose: 40 mg Povidone Iodine (Betadine 10% Solution -) 1 applic TP BID [facility] Last Admin: 07/11/18 11:54 Dose: 1 applic Quetiapine Fumarate (Seroquel -) 50 mg PO DAILY [facility] Last Admin: 07/11/18 11:51 Dose: 50 mg Silver Sulfadiazine (Silvadene -) 1 applic TP DAILY [facility] Last Admin: 07/11/18 11:54 Dose: 1 applic CBC, BMP 07/10/18 08:10 07/08/18 06:40 Physical Exam S1 S2 RRR No pallor Lungs clear Abd- soft, NT no edema dressings to feet B/L PLAN stable see discharge summary. Anticipate d/c later today to [facility] Discussed with pillowcase turner also. pt is DNR/DNI
--- NOTE | 2018-07-11 13:48 | PN ---
Progress Note, Physician History of Present Illness: patient stable no new issues - Current Medication List Current Medications: Active Medications Acetaminophen (Tylenol -) 650 mg PO Q6H PRN PRN Reason: FEVER Last Admin: 07/10/18 12:49 Dose: 650 mg Al Hydroxide/Mg Hydroxide (Mylanta Oral Suspension -) 30 ml PO Q6HPO [facility] Last Admin: 07/11/18 11:55 Dose: 30 ml Divalproex Sodium (Depakote -) 125 mg PO BID [facility] Last Admin: 07/11/18 11:52 Dose: 125 mg Insulin Aspart ([facility]iding [facility] -) [facility]; Protocol Last Admin: 07/11/18 07:00 Dose: Not Given Memantine (Namenda -) 10 mg PO BID [facility] Last Admin: 07/11/18 11:51 Dose: 10 mg Pantoprazole Sodium (Protonix -) 40 mg PO BID [facility] Last Admin: 07/11/18 11:51 Dose: 40 mg Povidone Iodine (Betadine 10% Solution -) 1 applic TP BID [facility] Last Admin: 07/11/18 11:54 Dose: 1 applic Quetiapine Fumarate (Seroquel -) 50 mg PO DAILY [facility] Last Admin: 07/11/18 11:51 Dose: 50 mg Silver Sulfadiazine (Silvadene -) 1 applic TP DAILY [facility] Last Admin: 07/11/18 11:54 Dose: 1 applic - Objective Vital Signs: Vital Signs Temperature 98.6 F 07/11/18 06:05 Pulse Rate 77 07/11/18 06:05 Respiratory Rate 20 07/11/18 06:05 Blood Pressure 151/74 07/11/18 06:05 O2 Sat by Pulse Oximetry (%) 100 07/10/18 21:00 Constitutional: Yes: No Distress, Calm Cardiovascular: Yes: S1, S2 Respiratory: Yes: Regular, CTA Bilaterally Gastrointestinal: Yes: Normal Bowel Sounds, Soft Musculoskeletal: Yes: WNL Extremities: Yes: WNL Neurological: Yes: Alert, Other Psychiatric: Yes: Other Labs: CBC, BMP 07/10/18 08:10 07/08/18 06:40 INR, PTT INR 1.04 (0.83-1.09) 07/04/18 06:58 Assessment/Plan Problem List - Problems (1) Altered mental status Code(s): R41.82 - ALTERED MENTAL STATUS, UNSPECIFIED (2) GI hemorrhage Code(s): K92.2 - GASTROINTESTINAL HEMORRHAGE, UNSPECIFIED (3) Severe sepsis Code(s): A41.9 - SEPSIS, UNSPECIFIED ORGANISM; R65.20 - SEVERE SEPSIS WITHOUT SEPTIC SHOCK (4) Dementia Code(s): F03.90 - UNSPECIFIED DEMENTIA WITHOUT BEHAVIORAL DISTURBANCE (5) Fever Code(s): R50.9 - FEVER, UNSPECIFIED Qualifiers: Fever type: unspecified Qualified Code(s): R50.9 - Fever, unspecified plan continue current abx close watch rest as per the team patient doing well
== END 2018-07-11 20:10 | DRG 871 ==
LOC: JER 13:36 → JERBED 15:20 → J5S 07-05 09:50
PROVIDERS: ADMIT Internal Medicine; ATTEND Internal Medicine
PROC: 30233N1 Transfusion of Nonautologous Red Blood Cells into Peripheral Vein, Percutaneous Approach (ICD-10-PCS; principal; 2018-07-04)
DX: A41.9 Sepsis, unspecified organism (principal); G93.41 Metabolic encephalopathy; I24.8 Other forms of acute ischemic heart disease; E87.2 Acidosis; N17.9 Acute kidney failure, unspecified; K92.2 Gastrointestinal hemorrhage, unspecified; E87.0 Hyperosmolality and hypernatremia; R65.20 Severe sepsis without septic shock; D64.9 Anemia, unspecified; R13.11 Dysphagia, oral phase; E87.6 Hypokalemia; R00.1 Bradycardia, unspecified; G30.9 Alzheimer's disease, unspecified; F02.80 Dementia in other diseases classified elsewhere, unspecified severity, without behavioral disturbance, psychotic disturbance, mood disturbance, and anxiety; F41.8 Other specified anxiety disorders; K21.9 Gastro-esophageal reflux disease without esophagitis; R41.82 Altered mental status, unspecified; D72.829 Elevated white blood cell count, unspecified
CPT/HCPCS: 36415; 36430; 71045-TC-FY; 80048; 80053; 80061; 81003; 82150; 82272; 82550; 82553; 82728; 82803; 82962; 83540; 83550; 83605; 83690; 83721; 83735; 84100; 84443; 84466; 84484; 85025; 85027; 85044; 85610; 86140; 86850; 86870; 86900; 86901; 86902; 86922; 87040; 87086; 87254; 87804; 93005; 93010; 99284-25; J0131; J7030; P9038; P9058